=== PATIENT | female | born 1990 | race American Indian/Alaskan Native ===

== ENCOUNTER 2017-08-13 12:55 | Outpatient (CLI) | payer MEDICAID ==
--- NOTE | 2017-08-13 16:58 | Ultrasound Report ---
FINAL REPORT PROCEDURE: Transabdominal obstetrical ultrasound. TECHNIQUE: Real-time transabdominal sonography of the uterus, placenta, amniotic fluid, adnexa, and fetus was performed with image documentation. Measurements were obtained to determine age/size. M-mode Doppler was used to document heartbeat. CPT 35725 HISTORY: Missed . COMPARISON: No prior studies are available for comparison. FINDINGS: The uterus measures 9.2 centimeters x 6.5 centimeters x 8.9 centimeters. The myometrium appears normal. There is a fluid collection in the uterus consistent with an intrauterine gestational sac. A pole is not definitely visible on these transabdominal images. Neither ovary is definitely visualized. There is no fluid in the cul-de-sac. IMPRESSION: Probable intrauterine gestational sac. pole not definitely visualized.
--- NOTE | 2017-08-13 17:01 | Ultrasound Report ---
FINAL REPORT PROCEDURE: Transvaginal obstetrical ultrasound. TECHNIQUE: Real-time transvaginal sonography of the uterus, placenta, amniotic fluid, adnexa, and fetus was performed with image documentation. Measurements were obtained to determine age/size. M-mode Doppler was used to document heartbeat. CPT 20714 HISTORY: Missed . COMPARISON: No prior studies are available for comparison. FINDINGS: The uterine myometrium appears normal. There is an intrauterine gestational sac. There is a pole present with a crown-rump length measure of 1.0 centimeters. This indicates a menstrual age of 7 weeks 1 day. There is no detectable heart rate. Both ovaries appear normal in size and contain small follicles. There is no fluid in the cul-de-sac. IMPRESSION: Intrauterine demise.
== END 2017-08-13 12:56 | disposition home or self-care (01) ==
LOC: US 12:55
PROVIDERS: ATTEND Obstetrics & Gynecology
DX: O02.1 Missed abortion (principal); Z3A.01 Less than 8 weeks gestation of pregnancy
CPT/HCPCS: 76801; 76817

== ENCOUNTER 2017-08-22 08:10 | Emergency (ER) | payer MEDICAID | END 2017-08-22 09:55 | disposition left against medical advice (07) | LOC: ED 08:10 | DX: Z53.21 Procedure and treatment not carried out due to patient leaving prior to being seen by health care provider (principal) ==

== ENCOUNTER 2017-08-22 11:19 | Emergency (ER) | payer MEDICAID ==
[2017-08-22] MEDS ORDERED: NACL 0.9% 1000 ML 1,000 ML IV ONE ×2 (12:16→14:15)
--- NOTE | 2017-08-22 12:24 | Emergency Department Report ---
ED Female HPI - General Chief complaint: Urogenital-Female Stated complaint: MISCARRAGE/SYNCOPE Time Seen by Provider: 08/22/17 12:14 Source: patient, EMS Mode of arrival: Stretcher Limitations: No Limitations - History of Present Illness Initial comments: 26-year-old female presents to the hospital with vaginal bleeding status post miscarriage. This is patient's second she has one living child. She had ultrasound on record here 08/13/2017 showed a 7 week 1 day IUP with no heart. Diagnosis intrauterine demise. The last 3 days she has had intermittent vaginal bleeding that increased this morning with clots. Patient initially presented to the ED this am and within one hour she states she soaks through 7 pads. She left prior to being seen by ed physician then went to [facility] where she soaked through another 4 pads. She states they removed a sac in the office and discharged her. While walking to her vehicle patient became lightheaded and passed out. She complains only of intermittent mild suprapubic cramping abdominal pain and continued vaginal bleeding. She denies headache, chest pain, or shortness of breath. - Related Data Previous Rx's Medication Instructions Recorded Last Taken Type HYDROcodone/APAP 5-325 [[place] 1 each PO Q6HR PRN #12 tablet 08/22/17 Unknown Rx 5/325] Ibuprofen [Motrin] 600 mg PO Q8H PRN #30 tablet 08/22/17 Unknown Rx Methylergonovine Maleate 0.2 mg PO Q4HR #6 tab 08/22/17 Unknown Rx [Methergine] Allergies Allergy/AdvReac Type Severity Reaction Status Date / Time No Known Allergies Allergy Unverified 08/13/17 12:56 ED Review of Systems ROS: Stated complaint: MISCARRAGE/SYNCOPE Other details as noted in HPI Comment: All other systems reviewed and negative Other: Constitutional: No fevers chills Eyes: No eye pain visual changes or discharge ENT: No ear pain or throat pain Neck: Denies pain Respiratory: Denies cough wheezing shortness of breath Cardiovascular: Denies chest pain, palpitations= GI: Denies nausea, vomiting, diarrhea : Denies dysuria Musculoskeletal: Denies back pain Skin: Denies rash, lesions, erythema Neurologic: Denies headache, numbness, weakness Psychiatric: Denies suicidal ideation, hallucinations = ED Past Medical Hx - Past Medical History Previous Medical History?: No - Social History Smoking Status: Former Smoker - Medications Home Medications: Home Medications Medication Instructions Recorded Confirmed Last Taken Type HYDROcodone/APAP 5-325 [[place] 1 each PO Q6HR PRN #12 tablet 08/22/17 Unknown Rx 5/325] Ibuprofen [Motrin] 600 mg PO Q8H PRN #30 tablet 08/22/17 Unknown Rx Methylergonovine Maleate 0.2 mg PO Q4HR #6 tab 08/22/17 Unknown Rx [Methergine] ED Physical Exam - General Limitations: No Limitations - Other Other exam information: General: No limitations, patient is alert in no acute distress Head exam: Atraumatic, normocephalic Eyes exam: Normal appearance ENT: Moist mucous membrane, normal oropharynx Neck exam: Normal inspection, full range of motion, no meningismus nontender Respiratory exam: Clear to auscultation bilateral, no wheezes, rales, crackles Cardiovascular: Normal rate and rhythm, normal heart sounds Abdomen: Soft, nondistended, mild suprapubic tenderness, with normal bowel sounds, no rebound, or guarding Extremity: Full range of motion normal inspection no deformity Back: Normal Inspection, full range of motion, no tenderness Neurologic: Alert, oriented x3, cranial nerves intact, no motor or sensory deficit Psychiatric: normal affect, normal mood Skin: Warm, dry, intact ED Course Vital Signs 08/22/17 08/22/17 12:10 17:55 Temperature 98.0 F 98.6 F Pulse Rate 113 H 85 Respiratory 15 15 Rate Blood Pressure 103/67 103/60 [Left] O2 Sat by Pulse 100 100 Oximetry - Reevaluation(s) Reevaluation #1: 08/22/17 12:24 1 L normal saline ordered - Consultations Consultation #1: 08/22/17 16:14 Case discussed with Autumn Villeda on-call for [facility]. She is familiar with the patient from the office. They plan to discharge home with methergin but she had syncopal episode prior to receiving the medication. We discussed patient's vital signs, labs, and ultrasound result. She recommends Methergine 0.2 mg IM now followed by by mouth Methergine 0.2 mg every 4 hours 6 doses to go home with. Recommend one shot of Rocephin 500 mg prior to discharge. 08/22/17 17:50 ED Medical Decision Making - Lab Data Result diagrams: 08/22/17 12:38 08/22/17 12:38 Lab Results 08/22/17 08/22/17 08/22/17 Range/Units 12:38 12:38 12:38 WBC 19.8 H (4.5-11.0) K/mm3 RBC 3.21 L (3.65-5.03) M/mm3 Hgb 9.1 L (10.1-14.3) gm/dl Hct 27.7 L (30.3-42.9) % MCV 86 (79-97) fl MCH 28 (28-32) pg MCHC 33 (30-34) % RDW 14.9 (13.2-15.2) % Plt Count 304 (140-440) K/mm3 Add Manual Diff Complete Total Counted 100 Seg Neuts % (Manual) 89.0 H (40.0-70.0) % Band Neutrophils % 4.0 % Lymphocytes % (Manual) 6.0 L (13.4-35.0) % Reactive Lymphs % (Man) 0 % Monocytes % (Manual) 1.0 (0.0-7.3) % Eosinophils % (Manual) 0 (0.0-4.3) % Basophils % (Manual) 0 (0.0-1.8) % Metamyelocytes % 0 % Myelocytes % 0 % Promyelocytes % 0 % Blast Cells % 0 % Nucleated RBC % Not Reportable Seg Neutrophils # Man 17.6 H (1.8-7.7) K/mm3 Band Neutrophils # 0.8 K/mm3 Lymphocytes # (Manual) 1.2 (1.2-5.4) K/mm3 Abs React Lymphs (Man) 0.0 K/mm3 Monocytes # (Manual) 0.2 (0.0-0.8) K/mm3 Eosinophils # (Manual) 0.0 (0.0-0.4) K/mm3 Basophils # (Manual) 0.0 (0.0-0.1) K/mm3 Metamyelocytes # 0.0 K/mm3 Myelocytes # 0.0 K/mm3 Promyelocytes # 0.0 K/mm3 Blast Cells # 0.0 K/mm3 WBC Morphology Not Reportable Hypersegmented Neuts Not Reportable Hyposegmented Neuts Not Reportable Hypogranular Neuts Not Reportable Smudge Cells Not Reportable Toxic Granulation Not Reportable Toxic Vacuolation Not Reportable Dohle Bodies Not Reportable Pelger-Huet Anomaly Not Reportable Alex Rods Not Reportable Platelet Estimate Not Reportable Clumped Platelets Not Reportable Plt Clumps, EDTA Not Reportable Large Platelets Not Reportable Giant Platelets Not Reportable Platelet Satelliting Not Reportable Plt Morphology Comment Not Reportable RBC Morphology Not Reportable Dimorphic RBCs Not Reportable Polychromasia Not Reportable Hypochromasia Not Reportable Poikilocytosis Not Reportable Anisocytosis 1+ Microcytosis Not Reportable Macrocytosis Not Reportable Spherocytes Not Reportable Pappenheimer Bodies Not Reportable Sickle Cells Not Reportable Target Cells Not Reportable Tear Drop Cells Not Reportable Ovalocytes Not Reportable Helmet Cells Not Reportable Loco-[place] Bodies Not Reportable [place] Rings Not Reportable [place] Cells Not Reportable Bite Cells Not Reportable Crenated Cell Not Reportable Elliptocytes Not Reportable Acanthocytes (Spur) Not Reportable Rouleaux Not Reportable Hemoglobin C Crystals Not Reportable Schistocytes Not Reportable Malaria parasites Not Reportable Yimi Bodies Not Reportable Hem Pathologist Commnt No Sodium 138 (137-145) mmol/L Potassium 3.9 (3.6-5.0) mmol/L Chloride 99.6 (98-107) mmol/L Carbon Dioxide 21 L (22-30) mmol/L Anion Gap 21 mmol/L BUN 10 (7-17) mg/dL Creatinine 0.4 L (0.7-1.2) mg/dL Estimated GFR > 60 ml/min BUN/Creatinine Ratio 25 % Glucose 130 H (65-100) mg/dL Calcium 8.6 (8.4-10.2) mg/dL HCG, Quant (0-4) mIU/mL Blood Type AB POSITIVE Antibody Screen Negative 08/22/17 Range/Units Unknown WBC (4.5-11.0) K/mm3 RBC (3.65-5.03) M/mm3 Hgb (10.1-14.3) gm/dl Hct (30.3-42.9) % MCV (79-97) fl MCH (28-32) pg MCHC (30-34) % RDW (13.2-15.2) % Plt Count (140-440) K/mm3 Add Manual Diff Total Counted Seg Neuts % (Manual) (40.0-70.0) % Band Neutrophils % % Lymphocytes % (Manual) (13.4-35.0) % Reactive Lymphs % (Man) % Monocytes % (Manual) (0.0-7.3) % Eosinophils % (Manual) (0.0-4.3) % Basophils % (Manual) (0.0-1.8) % Metamyelocytes % % Myelocytes % % Promyelocytes % % Blast Cells % % Nucleated RBC % Seg Neutrophils # Man (1.8-7.7) K/mm3 Band Neutrophils # K/mm3 Lymphocytes # (Manual) (1.2-5.4) K/mm3 Abs React Lymphs (Man) K/mm3 Monocytes # (Manual) (0.0-0.8) K/mm3 Eosinophils # (Manual) (0.0-0.4) K/mm3 Basophils # (Manual) (0.0-0.1) K/mm3 Metamyelocytes # K/mm3 Myelocytes # K/mm3 Promyelocytes # K/mm3 Blast Cells # K/mm3 WBC Morphology Hypersegmented Neuts Hyposegmented Neuts Hypogranular Neuts Smudge Cells Toxic Granulation Toxic Vacuolation Dohle Bodies Pelger-Huet Anomaly Alex Rods Platelet Estimate Clumped Platelets Plt Clumps, EDTA Large Platelets Giant Platelets Platelet Satelliting Plt Morphology Comment RBC Morphology Dimorphic RBCs Polychromasia Hypochromasia Poikilocytosis Anisocytosis Microcytosis Macrocytosis Spherocytes Pappenheimer Bodies Sickle Cells Target Cells Tear Drop Cells Ovalocytes Helmet Cells Loco-[place] Bodies [place] Rings [place] Cells Bite Cells Crenated Cell Elliptocytes Acanthocytes (Spur) Rouleaux Hemoglobin C Crystals Schistocytes Malaria parasites Yimi Bodies Hem Pathologist Commnt Sodium (137-145) mmol/L Potassium (3.6-5.0) mmol/L Chloride (98-107) mmol/L Carbon Dioxide (22-30) mmol/L Anion Gap mmol/L BUN (7-17) mg/dL Creatinine (0.7-1.2) mg/dL Estimated GFR ml/min BUN/Creatinine Ratio % Glucose (65-100) mg/dL Calcium (8.4-10.2) mg/dL HCG, Quant 3280 H (0-4) mIU/mL Blood Type Antibody Screen - EKG Data -: EKG Interpreted by Me EKG shows normal: sinus rhythm, axis (22), QRS complexes (102), ST-T waves (no stemi/t inv) Rate: normal (89) - EKG Data When compared to previous EKG there are: previous EKG unavailable - Radiology Data Radiology results: report reviewed pelvic/transvag us: Heterogeneous thick endometerium. no gestation sac, no mass at adenexa - Medical Decision Making Case discussed with [facility]. Patient feels better, bleeding has decreased, and Methergine initiated. She does have some anemia with hemoglobin greater than 8. Will be discharged home with treatment - Differential Diagnosis anemia, volume depletion, vasovagal, pe, arrhythmia Critical Care Time: No Critical care attestation.: If time is entered above; I have spent that time in minutes in the direct care of this critically ill patient, excluding procedure time. ED Disposition Clinical Impression: Miscarriage, Episode of heavy vaginal bleeding, Syncope Disposition: TO HOME OR SELFCARE Is pt being admited?: No Does the pt Need Aspirin: No Condition: Stable Instructions: Spontaneous Miscarriage (ED), Syncope (ED) Additional Instructions: Take the medication as directed. Follow-up with your [facility] doctor. Return if symptoms worsen Prescriptions: HYDROcodone/APAP 5-325 [[place] 5/325] 1 each PO Q6HR PRN #12 tablet PRN Reason: Pain Ibuprofen [Motrin] 600 mg PO Q8H PRN #30 tablet PRN Reason: Pain Methylergonovine Maleate [Methergine] 0.2 mg PO Q4HR #6 tab Referrals: [facility] [Provider Group] - 2-3 Days Forms: Work/School Release Form(ED) Time of Disposition: 17:50
[2017-08-22 12:57] LABS: Hematocrit 27.7 % (30.3-42.9); Hemoglobin 9.1 gm/dl (10.1-14.3); Mean Corpuscular HGB Conc 33 % (30-34); Mean Corpuscular Hemoglobin 28 pg (28-32); Mean Corpuscular Volume 86 fl (79-97); Platelet Count 304 K/mm3 (140-440); Red Blood Count 3.21 M/mm3 (3.65-5.03); Red Cell Distribution Width 14.9 % (13.2-15.2)
[2017-08-22 13:13] LABS: BUN/Creatinine Ratio 25; Blood Urea Nitrogen 10 mg/dL (7-17); Calcium 8.6 mg/dL (8.4-10.2); Hemolysis Index 24
[2017-08-22 13:37] LABS: Band Neutrophils # (Manual) 0.8 K/mm3; Eosinophils % (Manual) 0 % (0.0-4.3); Total Cells Counted 100
[2017-08-22 13:38] LABS: Anisocytosis 1+; Basophils % (Manual) 0 % (0.0-1.8)
[2017-08-22] MEDS ORDERED: TORADOL IV ONE ×2 (14:29→14:34)
[2017-08-22] MEDS ORDERED: TORADOL ONE (14:30)
--- NOTE | 2017-08-22 15:50 | Ultrasound Report ---
Pelvic and transvaginal sonography: History: Recent miscarriage: Vaginal bleeding Findings: Uterus measures 12.1 x 5.6 x 7.9 cm. Endometrial thickness 20.3 mm. Endometrium is heterogeneous. No distinct mass is identified. No gestational sac is seen. Right ovary 2.7 x 1.9 x 2.3 cm. No mass. Left ovary 3.4 x 2.2 x 2.2 cm. No mass. Impression: Heterogeneous thick endometrium. No gestational sac. No mass at adnexa.
[2017-08-22] MEDS ORDERED: METHERGINE IM ONE (16:12)
[2017-08-22] MEDS ORDERED: ROCEPHIN 500 MG in NACL 0.9% 50 ML IV ONE (16:13)
[2017-08-22] MEDS ORDERED: cefTRIAXone 0.5 GM in NACL 0.9% 20 ML IV ONE (17:30)
[2017-08-22 17:56] VITALS: BP 103/60
== END 2017-08-22 18:31 | disposition home or self-care (01) ==
LOC: ED 11:19
DX: O03.9 Complete or unspecified spontaneous abortion without complication (principal); O20.9 Hemorrhage in early pregnancy, unspecified; R55 Syncope and collapse; Z3A.01 Less than 8 weeks gestation of pregnancy; Z87.891 Personal history of nicotine dependence
CPT/HCPCS: 36415; 76801; 76817; 80048; 84702; 85007; 85025; 86850; 86900; 86901; 93005; 93010; 96361; 96372; 96374; 96375; 99284; J0696; J1885; J2210; J7030

== ENCOUNTER 2018-01-20 21:08 | Emergency (ER) | payer MEDICAID | END 2018-01-20 22:22 | disposition left against medical advice (07) | LOC: ED 21:08 | DX: N93.8 Other specified abnormal uterine and vaginal bleeding (principal); Z53.21 Procedure and treatment not carried out due to patient leaving prior to being seen by health care provider ==

== ENCOUNTER 2018-01-24 21:32 | Emergency (ER) | payer MEDICAID ==
[2018-01-24 23:07] LABS: Hemoglobin 9.6 gm/dl (10.1-14.3)
[2018-01-24 23:14] LABS: Hematocrit 30.7 % (30.3-42.9); Mean Corpuscular Volume 62 fl (79-97); Red Blood Count 4.98 M/mm3 (3.65-5.03)
[2018-01-24 23:15] LABS: Mean Corpuscular HGB Conc 32 % (30-34); Mean Corpuscular Hemoglobin 20 pg (28-32); Platelet Count 509 K/mm3 (140-440); Red Cell Distribution Width 29.8 % (13.2-15.2)
[2018-01-24 23:18] LABS: Alanine Aminotransferase 9 units/L (7-56); Albumin 4.5 g/dL (3.9-5); BUN/Creatinine Ratio 17; Blood Urea Nitrogen 10 mg/dL (7-17); Calcium 9.3 mg/dL (8.4-10.2); Hemolysis Index 4
--- NOTE | 2018-01-24 23:38 | Emergency Department Report ---
HPI - General Chief Complaint: Abdominal Pain Time Seen by Provider: 01/24/18 22:53 - HPI HPI: Room 10 The patient is a 27-year-old female presenting with a chief complaint of vaginal spotting and pelvic cramping. The patient states she had a miscarriage in August. The patient states she has not had a cycle since November and subsequently took a test 5 days ago which came back positive. The patient states this morning she noticed some vaginal spotting and this prompted her to come to the ED for evaluation. The patient states she has not seen an OB /HOSPITAL NURSE for this second suspected . Patient states she has some lower abdominal cramping this morning but has since resolved. Location: Pelvis, see above Duration: [See above] Quality: Cramping Severity: Currently 0/10 Modifying factors: [see above] Context: [see above] Mode of transportation: Unknown ED Past Medical Hx - Past Medical History Previous Medical History?: No - Surgical History Past Surgical History?: No - Family History Family history: no significant - Social History Smoking Status: Former Smoker (none 1 month) Substance Use Type: None (denies illicit drug use) - Medications Home Medications: Home Medications Medication Instructions Recorded Confirmed Last Taken Type HYDROcodone/APAP 5-325 [[place] 1 each PO Q6HR PRN #12 tablet 08/22/17 Unknown Rx 5/325] Ibuprofen [Motrin] 600 mg PO Q8H PRN #30 tablet 08/22/17 Unknown Rx Methylergonovine Maleate 0.2 mg PO Q4HR #6 tab 08/22/17 Unknown Rx [Methergine] ED Review of Systems ROS: Stated complaint: ABD PAIN / VAG BLEEDING Other details as noted in HPI Constitutional: no symptoms reported Eyes: denies: eye pain ENT: denies: throat pain Cardiovascular: denies: chest pain Gastrointestinal: abdominal pain Genitourinary: abnormal menses. denies: dysuria Musculoskeletal: denies: back pain Neurological: denies: headache Physical Exam - Physical Exam Vital Signs: Vital Signs 01/24/18 21:56 Temperature 98.8 F Pulse Rate 83 Respiratory 14 Rate Blood Pressure 99/56 O2 Sat by Pulse 100 Oximetry Physical Exam: GENERAL: The patient is well-developed well-nourished female sitting on stretcher not appearing to be in acute distress. [] HEENT: Normocephalic. Atraumatic. Extraocular motions are intact. Patient has moist mucous membranes. NECK: Supple. Trachea midline CHEST/LUNGS: Clear to auscultation. There is no respiratory distress noted. HEART/CARDIOVASCULAR: Regular. There is no tachycardia. There is no gallop rub or murmur. ABDOMEN: Abdomen is soft, nontender. Patient has normal bowel sounds. There is no abdominal distention. SKIN: There is no rash. There is no edema. There is no diaphoresis. NEURO: The patient is awake, alert, and oriented. The patient is cooperative. The patient has normal speech MUSCULOSKELETAL: There is no evidence of acute injury. ED Course Vital Signs 01/24/18 21:56 Temperature 98.8 F Pulse Rate 83 Respiratory 14 Rate Blood Pressure 99/56 O2 Sat by Pulse 100 Oximetry ED Medical Decision Making - Lab Data Result diagrams: 01/24/18 22:42 01/24/18 22:42 Laboratory Tests 01/24/18 01/24/18 01/24/18 22:42 22:42 22:42 WBC 9.1 RBC 4.98 Hgb 9.6 L Hct 30.7 MCV 62 L MCH 20 L MCHC 32 RDW 29.8 H Plt Count 509 H Sodium 136 L Potassium 4.0 Chloride 97.1 L Carbon Dioxide 28 Anion Gap 15 BUN 10 Creatinine 0.6 L Estimated GFR > 60 BUN/Creatinine Ratio 17 Glucose 109 H Calcium 9.3 Total Bilirubin < 0.20 AST 14 ALT 9 Alkaline Phosphatase 87 Total Protein 7.1 Albumin 4.5 Albumin/Globulin Ratio 1.7 HCG, Quant 21252 H - Radiology Data Radiology results: report reviewed (pelvic ultrasound), image reviewed (pelvic ultrasound) Pelvic ultrasound to see his regular radiologist)-single live IUP. Estimated gestational age 6 weeks 0 days. Estimated delivery date 09/20/2018. 2.0 cm hypoechoic avascular structure in the right ovary which may reflect corpus luteum. No adnexal masses. - Medical Decision Making Patient states she knows which [facility] she wishes to see and does not need a referral. - Differential Diagnosis threatened , missed , menses Critical care attestation.: If time is entered above; I have spent that time in minutes in the direct care of this critically ill patient, excluding procedure time. ED Disposition Clinical Impression: Threatened Disposition: DC-01 TO HOME OR SELFCARE Is pt being admited?: No Does the pt Need Aspirin: No Condition: Stable Instructions: Abdominal Pain (ED), Threatened Miscarriage (ED) Additional Instructions: Return to the emergency department immediately should you develop worsening symptoms, fever, inability to tolerate food or liquid or any other concerns. Referrals: PRIMARY CARE,MD [Primary Care Provider] - 3-5 Days your, [facility] [Other] - [facility]ALI Time of Disposition: 01:25
--- NOTE | 2018-01-25 01:32 | Ultrasound Report ---
FINAL REPORT EXAM: US OB < = 14 WEEKS FETUS HISTORY: vaginal spotting COMPARISON: None of this . TECHNIQUE: Several real-time grayscale and color Doppler images were obtained. Transabdominal and transvaginal exam. FINDINGS: Uterus measures 8.5 x 5.5 x 6.8 centimeters. Uterus is retroverted. There is a single live IUP. Estimated gestational age 6 weeks 0 days. Estimated delivery date September 20, 2018. heart rate 91 beats per minute. The right ovary measures 2.9 x 2.0 x 2.6 centimeters. The left ovary measures 2.1 x 1.6 x 1.8 centimeters. Within the right ovary there is a 2.0 x 1.4 x 1.8 centimeter hypoechoic avascular structure which may reflect corpus luteum. Gross vascular flow to the right ovary demonstrated. No adnexal masses. Trace fluid in the pelvis. IMPRESSION: Single live IUP. Estimated gestational age 6 weeks 0 days. Estimated delivery date September 20, 2018. 2.0 centimeter hypoechoic avascular structure in the right ovary which may reflect corpus luteum. No adnexal masses.
[2018-01-25 01:51] LABS: Bilirubin,Urine NEG (Negative); Blood,Urine NEG (Negative); Color,Urine Yellow (Yellow); Protein,Urine <15 mg/dL mg/dL (Negative); Urobilinogen,Urine < 2.0 mg/dL (<2.0)
[2018-01-25 01:54] VITALS: BP 103/51
[2018-01-25 02:35] LABS: Anisocytosis 1+; Band Neutrophils # (Manual) 0.1 K/mm3; Total Cells Counted 100
[2018-01-25 02:36] LABS: Hypochromasia 1+; Platelet Estimate Consistent w Auto; Poikilocytosis 1+
== END 2018-01-25 01:53 | disposition home or self-care (01) ==
LOC: ED 21:32
DX: O20.0 Threatened abortion (principal); Z3A.01 Less than 8 weeks gestation of pregnancy; Z87.891 Personal history of nicotine dependence
CPT/HCPCS: 36415; 76801; 76817; 80053; 81001; 84702; 85007; 85025; 99284

== ENCOUNTER 2018-08-22 15:37 | Observation (INO) | payer MEDICAID ==
[2018-08-22] MEDS ORDERED: CELESTONE SOLUSPAN IM ONE (18:00)
[2018-08-22] MEDS ORDERED: LACTATED RINGERS 1,000 ML IV ONE (18:00)
[2018-08-22 18:33] LABS: Bacteria,Urine 1+ /HPF (Negative); Bilirubin,Urine NEG (Negative); Blood,Urine SM (Negative); Color,Urine Amber (Yellow); Mucus,Urine 3+ /HPF
[2018-08-22 18:40] LABS: Amphetamine Screen,Urine PRESUMPTIVE NEGATIVE; Benzodiazepines Screen,Urine PRESUMPTIVE NEGATIVE; Cocaine Screen,Urine PRESUMPTIVE NEGATIVE; Methadone Screen,Urine PRESUMPTIVE NEGATIVE; Opiate Screen,Urine PRESUMPTIVE NEGATIVE
[2018-08-22 19:00] LABS: Cannabinoid Screen,Urine PRESUMPTIVE POSITIVE
[2018-08-22] MEDS ORDERED: BRETHINE SUB-Q ONE (19:00)
[2018-08-22] MEDS ORDERED: TYLENOL PO PRN (19:21)
[2018-08-22] MEDS ORDERED: COLACE PO PRN (19:21)
--- NOTE | 2018-08-22 19:36 | History and Physical Report ---
History of Present Illness Date of examination: 08/22/18 Date of admission: 08/22/2018 Chief complaint: Contractions History of present illness: 27 year old at 36 weeks gestation presents for complaining of contractions for the past 2 weeks. Patient denies leaking of fluid, vaginal bleeding, falls or abdominal trauma. She reports active movement. She has been receiving care at [facility]. LMP 01/26/18 and EDC is 09/19/2018. A 10 week 1 day US confirmed the EDC. significant for Vitamin D deficiency, anemia, and genital herpes on Valtrex suppression. labs are as follows: AB+, Abs-, Rubella Immune, RPR Non-reactive, Hep B Surface Antigen Negative, HIV negative, Glucose screen 110, Quad Screen Negative, GBS unknown. 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 denies: smoking, alcohol abuse, prescription drug abuse, IV drug use - Obstetrical History Expected Date of Delivery: 09/19/18 Actual Gestation: 36 Week(s) 0 Day(s) : 3 Para: 1 Hx # Term Pregnancies: 1 Number of Pregnancies: 0 Spontaneous Abortions: 1 Number of Living Children: 1 Medications and Allergies Allergies Allergy/AdvReac Type Severity Reaction Status Date / Time No Known Allergies Allergy Unverified 08/13/17 12:56 Home Medications Medication Instructions Recorded Confirmed Last Taken Type HYDROcodone/APAP 5-325 [[place] 1 each PO Q6HR PRN #12 tablet 08/22/17 Unknown Rx 5/325] Ibuprofen [Motrin] 600 mg PO Q8H PRN #30 tablet 08/22/17 Unknown Rx Methylergonovine Maleate 0.2 mg PO Q4HR #6 tab 08/22/17 Unknown Rx [Methergine] Acyclovir [Acyclovir Ointment] 1 applicatio TP 5XD #1 tube 06/12/18 Unknown Rx Active Meds: Active Medications Acetaminophen (Tylenol) 650 mg PO Q4H PRN PRN Reason: Pain MILD(1-3)/Fever >100.5/HARRISON Docusate Sodium (Colace) 100 mg PO Q12H PRN PRN Reason: Constipation Ampicillin Sodium (Polycillin/Ns 2 Gm/100 Ml) 2 gm in 100 mls @ 100 mls/hr IV ONCE ONE; Protocol Stop: 08/22/18 20:20 Lactated Ringer's (Lactated Ringers) 1,000 mls @ 125 mls/hr IV DIRECT ALEYDA Multivitamins/Iron/Calcium ( Vitamin) 1 each PO QDAY [facility] Valacyclovir HCl (Valtrex) 500 mg PO BID [facility] Review of Systems All systems: negative (contractions) - Vital Signs Vital signs: Vital Signs Pulse BP 108 H 106/65 08/22/18 17:05 08/22/18 17:05 Temp Pulse Resp BP Pulse Ox 97.5 F L 98 H 16 111/60 08/22/18 18:28 08/22/18 18:30 08/22/18 18:28 08/22/18 18:30 - Physical Exam Cardiovascular: Regular rate, Normal S1, Normal S2 Lungs: Positive: Clear to auscultation, Normal air movement Abdomen: Positive: soft. Negative: tenderness Genitourinary (Female): Positive: normal external genitalia, normal perenium. Negative: perineal/vulvar lesions (no lesions seen on careful exam with bright light upon admission) Vagina: Positive: normal moisture Uterus: Positive: enlarged (S=D) Extremities: Positive: normal. Negative: edema - Obstetrical FHR: category 1 Uterine Contraction Monitor Mode: External Cervical Dilatation: 3.5 Cervical Effacement Percentage: 60 station: -2 Uterine Contraction Pattern: Irregular Results Abnormal lab results 08/22/18 Range/Units Unknown Urine WBC (Auto) 31.0 H (0.0-6.0) /HPF All other labs normal. Assessment and Plan A: at 36 weeks gestation Threatened PTL GBS unknown HSV positive P: Admit for 23 hour observation Valtrex Suppression of HSV IV hydration Betamethasone GBS prophylaxis MULUGETA Brooks/ Katherin Sainz CNM
[2018-08-22] MEDS ORDERED: LACTATED RINGERS 1,000 ML IV SCH (20:00)
[2018-08-22] MEDS ORDERED: AMPICILLIN/NS 2 GM/100 ML 2 GM/100 ML BAG IV ONE (20:00)
[2018-08-22 20:44] LABS: Basophils # (Auto) 0.1 K/mm3 (0.0-0.1); Basophils % (Auto) 0.6 % (0.0-1.8); Eosinophils % (Auto) 0.1 % (0.0-4.3); Hematocrit 31.2 % (30.3-42.9); Hemoglobin 10.2 gm/dl (10.1-14.3); Lymphocytes % (Auto) 7.1 % (13.4-35.0); Mean Corpuscular HGB Conc 33 % (30-34); Mean Corpuscular Volume 78 fl (79-97); Monocytes # (Auto) 0.4 K/mm3 (0.0-0.8); Monocytes % (Auto) 2.7 % (0.0-7.3); Platelet Count 314 K/mm3 (140-440); Red Blood Count 4.01 M/mm3 (3.65-5.03); Red Cell Distribution Width 16.9 % (13.2-15.2)
[2018-08-22] MEDS: VALTREX PO SCH (22:31)
[2018-08-23] MEDS ORDERED: AMPICILLIN/NS 1 GM/50 ML 1 GM/50 ML BAG IV SCH
[2018-08-23] MEDS ORDERED: PRENATAL VITAMIN PO SCH (10:00)
[2018-08-23] MEDS ORDERED: ROCEPHIN/NS 1 GM/50 ML 1 GM/50 ML BAG IV SCH (10:00)
[2018-08-23] MEDS: VALTREX PO SCH (11:59)
--- NOTE | 2018-08-23 12:47 | Progress Note ---
Assessment and Plan A: at 36 weeks 1 day gestation Threatened PTL P: Plan repeat betamethasone at 6pm and cervical recheck. If no cervical change anticipate discharge. MULUGETA Brooks/ Katherin Sainz CNM Subjective - Subjective Date of service: 08/23/18 Principal diagnosis: 36 weeks 1day gestation and threatened PTL Interval history: Patient is doing well. Patient reports active movement, denies vaginal bleeding, regular contractions or leaking of fluid. Receiving IV antibiotics for UTI. Patient reports: movement normal, no new complaints Objective - Vital Signs Vital Signs: Vital Signs - 12hr 08/23/18 08/23/18 09:01 09:05 Temperature 97 F L Pulse Rate 88 88 Respiratory 14 Rate Blood Pressure 117/60 Blood Pressure 117/60 [Right] - Exam Abdomen: Present: normal appearance FHR: category 1 Uterine Contraction Monitor Mode: External Uterine Contraction Pattern: Absent - Labs Labs: Abnormal Labs 08/22/18 08/22/18 20:19 Unknown WBC 13.4 H MCV 78 L MCH 25 L RDW 16.9 H Lymph % (Auto) 7.1 L Lymph # 1.0 L Seg Neutrophils % 89.5 H Seg Neutrophils # 12.0 H Urine WBC (Auto) 31.0 H Laboratory Results - last 24 hr 08/22/18 08/22/18 08/22/18 20:19 Unknown Unknown WBC 13.4 H RBC 4.01 Hgb 10.2 Hct 31.2 MCV 78 L MCH 25 L MCHC 33 RDW 16.9 H Plt Count 314 Lymph % (Auto) 7.1 L [place] % (Auto) 2.7 Eos % (Auto) 0.1 Baso % (Auto) 0.6 Lymph # 1.0 L [place] # 0.4 Eos # 0.0 Baso # 0.1 Seg Neutrophils % 89.5 H Seg Neutrophils # 12.0 H Urine Color Marva Urine Turbidity Slightly-cloudy Urine pH 5.0 Ur Specific [place] 1.027 Urine Protein 30 mg/dl Urine Glucose (UA) 50 Urine Ketones Neg Urine Blood Sm Urine Nitrite Neg Urine Bilirubin Neg Urine Urobilinogen 4.0 Ur Leukocyte Esterase Lg Urine WBC (Auto) 31.0 H Urine RBC (Auto) 9.0 U Epithel Cells (Auto) 12.0 Urine Bacteria (Auto) 1+ Urine Mucus 3+ Urine Opiates Screen Presumptive negative Urine Methadone Screen Presumptive negative Ur Barbiturates Screen Presumptive negative Ur Phencyclidine Scrn Presumptive negative Ur Amphetamines Screen Presumptive negative U Benzodiazepines Scrn Presumptive negative Urine Cocaine Screen Presumptive negative U Marijuana (THC) Screen Presumptive positive Drugs of Abuse Note Disclamer
[2018-08-23 14:14] VITALS: BP 117/62
[2018-08-23] MEDS ORDERED: CELESTONE SOLUSPAN IM SCH (18:00)
[2018-08-23] MEDS ORDERED: CELESTONE SOLUSPAN IM ONE (18:00)
--- NOTE | 2018-08-23 18:36 | Discharge Summary ---
Providers - Providers Date of Admission: 08/22/18 19:29 Date of discharge: 08/23/18 Attending physician: LOGAN CSHWAB None Primary care physician: LOGAN SCHWAB Hospitalization Reason for admission: other (threatened labor) Delivery: other (undelivered at 36 weeks, 1 day gestation) Discharge diagnosis: other ( at 36 weeks, 1 day gestation; UTI; contractions resolved) Pertinent studies: Labs, US Hospital course: Stable hospital course. Condition at discharge: Good Disposition: [place]-01 TO HOME OR SELFCARE - Discharge Diagnoses (1) History of labor, current Status: Acute Plan - Provider Discharge Summary Activity: no sex for 6 weeks, no strenuous exercise Diet: routine Instructions: routine Additional instructions: Avoid intercourse until term. Follow up at [facility] this week. Daily movement counting. Take Macrobid 100 mg po BID for 1 week (Rx called to [facility]). Stop smoking marijuana. Return promptly if signs of labor, leaking of fluid, vaginal bleeding, or decreased movements or any other problems. - Follow up plan Follow up: LOGAN SCHWAB [Primary Care Provider] - 3 Days Forms: [facility] Discharge Summary
--- NOTE | 2018-08-23 19:15 | Ultrasound Report ---
FINAL REPORT EXAM: US OB BPP WO NON-STRESS HISTORY: well being TECHNIQUE: Biophysical profile obstetrical ultrasound PRIORS: Ultrasound Ob 08/23/2018, 01/24/2018. FINDINGS: Biophysical profile scoring 2 movement 2 tone 2 breathing 2 fluid 8/8 overall score Cardiac motion: 133 BPM using M-mode doppler IMPRESSION: Single intrauterine viable . Biophysical profile score is 8/8
--- NOTE | 2018-08-23 19:20 | Ultrasound Report ---
FINAL REPORT EXAM: US OB LIMITED HISTORY: DIANA TECHNIQUE: Limited obstetrical ultrasound for DIANA PRIORS: None. FINDINGS: Presentation: Cephalic Activity: Monitored Placental location: Fundal Placental grade: 1 Cardiac motion: 133 BPM using M-mode doppler Amniotic Fluid Volume: Adequate DIANA 8.6 cm, normal IMPRESSION: Single intrauterine viable with normal DIANA
== END 2018-08-23 18:50 | disposition home or self-care (01) ==
LOC: EDSTATUS 16:23 → TRG 16:34 → LD 19:29
PROVIDERS: ADMIT Obstetrics & Gynecology; ATTEND Obstetrics & Gynecology
DX: O62.9 Abnormality of forces of labor, unspecified (principal); O60.03 Preterm labor without delivery, third trimester; Z3A.36 36 weeks gestation of pregnancy
CPT/HCPCS: 36415; 59025; 76815; 76819; 80307; 81001; 85025; 87086; 96365; 96367; 96372; G0378; J0290; J0696; J0702; J7120; 96361

== ENCOUNTER 2018-08-27 01:47 | Inpatient (IN) | payer MEDICAID ==
[2018-08-27] MEDS ORDERED: LACTATED RINGERS 500 ML IV ONE (02:09)
[2018-08-27] MEDS ORDERED: STADOL IV PRN (02:32)
[2018-08-27] MEDS ORDERED: SUBLIMAZE IV PRN (02:32)
[2018-08-27] MEDS ORDERED: MINERAL OIL PO PRN (02:32)
[2018-08-27] MEDS ORDERED: BRETHINE SUB-Q PRN (02:32)
[2018-08-27] MEDS ORDERED: AMPICILLIN/NS 2 GM/100 ML 2 GM/100 ML BAG IV ONE (02:32)
[2018-08-27] MEDS ORDERED: BRETHINE IVP PRN (02:32)
[2018-08-27] MEDS ORDERED: XYLOCAINE 2% INFILTRATI ONE (02:32)
[2018-08-27] MEDS ORDERED: FLAGYL PO ONE (02:34)
[2018-08-27 02:59] LABS: Hematocrit 32.8 % (30.3-42.9); Hemoglobin 10.6 gm/dl (10.1-14.3); Mean Corpuscular HGB Conc 32 % (30-34); Mean Corpuscular Volume 79 fl (79-97); Platelet Count 315 K/mm3 (140-440); Red Blood Count 4.18 M/mm3 (3.65-5.03); Red Cell Distribution Width 17.5 % (13.2-15.2)
[2018-08-27] MEDS ORDERED: LACTATED RINGERS 1,000 ML IV SCH (03:00)
--- NOTE | 2018-08-27 03:41 | History and Physical Report ---
History of Present Illness Date of examination: 08/27/18 Date of admission: 08/27/18 02:50 Chief complaint: Labor Pains and my water broke at 0145 on 08/27/2018 History of present illness: Early entry to care, course complicated by Anemia, Vitamin D Insufficiency, Trichomonas, and HSV II, currently taking Valacyclovir and Metronidazole. 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: abnormal PAP smear, chlamydia, gonorrhea, herpes, trichomonas Family/Genetic History: diabetes, heart disease Social history: no significant social history, single - Obstetrical History Expected Date of Delivery: 09/19/18 Actual Gestation: 36 Week(s) 5 Day(s) : 5 Para: 1 Hx # Term Pregnancies: 1 Spontaneous Abortions: 1 Induced : 2 Number of Living Children: 1 #1 Infant Gender: Male year: Birthweight: 3.175 kg Method of Delivery: Vaginal Gestational age at delivery: 39 Complications: none Medications and Allergies Allergies Allergy/AdvReac Type Severity Reaction Status Date / Time No Known Allergies Allergy Unverified 08/13/17 12:56 Home Medications Medication Instructions Recorded Confirmed Last Taken Type Ferrous Sulfate [Feosol 325 MG tab] 1 tab PO BID 08/27/18 08/27/18 08/26/18 History Pnv No.95/Ferrous Fum/Folic AC 1 each PO QDAY 08/27/18 08/27/18 08/26/18 History [ Vitamin Tablet] Valacyclovir HCl [Valtrex] 1,000 mg PO QDAY 08/27/18 08/27/18 08/26/18 History metroNIDAZOLE [Flagyl TAB] 1 tab PO BID 08/27/18 08/27/18 08/26/18 History Active Meds: Active Medications Butorphanol Tartrate (Stadol) 2 mg IV Q2H PRN PRN Reason: Pain , Severe (7-10) Ephedrine Sulfate (Ephedrine Sulfate) 10 mg IV Q2M PRN PRN Reason: Hypotension Fentanyl (Sublimaze) 100 mcg IV Q2H PRN PRN Reason: Labor Pain Lactated Ringer's (Lactated Ringers) 1,000 mls @ 125 mls/hr IV DIRECT ALEYDA Oxytocin/Sodium Chloride (Pitocin/Ns 20 Unit/1000ml Drip) 20 units in 1,000 mls @ 125 mls/hr IV DIRECT ALEYDA Ampicillin Sodium (Ampicillin/Ns 1 Gm/50 Ml) 1 gm in 50 mls @ 100 mls/hr IV Q4HR ALEYDA; Protocol Mineral Oil (Mineral Oil) 30 ml PO QHS PRN PRN Reason: Constipation Terbutaline Sulfate (Brethine) 0.25 mg SUB-Q ONCE PRN PRN Reason: Hyperstimulation/Hypertonicity Terbutaline Sulfate (Brethine) 0.25 mg IVP ONCE PRN PRN Reason: Hyperstimulation/Hypertonicity Review of Systems All systems: negative - Vital Signs Vital signs: Vital Signs Pulse BP 123 H 110/74 08/27/18 01:59 08/27/18 01:59 Temp Pulse Resp BP Pulse Ox 98.8 F 100 H 20 110/74 100 08/27/18 02:03 08/27/18 02:38 08/27/18 02:03 08/27/18 01:59 08/27/18 02:38 - Physical Exam Breasts: Positive: normal Cardiovascular: Regular rate Lungs: Positive: Clear to auscultation, Normal air movement Abdomen: Positive: normal appearance, soft, normal bowel sounds Genitourinary (Female): Positive: normal external genitalia, normal perenium Vagina: Positive: normal moisture Uterus: Positive: enlarged Anus/Rectum: Positive: normal perianal skin - Obstetrical FHR: category 1 Uterine Contraction Monitor Mode: External Cervical Dilatation: 6 (leaking clear fluid) Cervical Effacement Percentage: 90 station: -2 Uterine Contraction Frequency (min): 1-2 Uterine Contraction Pattern: Regular Uterine Tone Measurement Phase: Resting Uterine Contraction Intensity: Moderate Results Result Diagrams: 08/27/18 02:45 Abnormal lab results 08/27/18 Range/Units 02:45 WBC 13.4 H (4.5-11.0) K/mm3 MCH 25 L (28-32) pg RDW 17.5 H (13.2-15.2) % All other labs normal. Assessment and Plan A: IUP @ 36 5/7 Weeks Category I Tracing PROM GBS Positive P: Admit to L&D per Routine Orders GBS Prophylaxis IV Pain Control
[2018-08-27] MEDS ORDERED: AMPICILLIN/NS 1 GM/50 ML 1 GM/50 ML BAG IV SCH (06:00)
[2018-08-27] MEDS: PITOCin/NS 20 UNIT/1000ML DRIP 20 UNITS/1,000 ML BAG IV SCH ×2 (07:10→08:39)
--- NOTE | 2018-08-27 07:30 | Procedure Note ---
OB Delivery Note - Delivery Date of Delivery: 08/27/18 (0705) Surgeon: TARYN GOMEZ Estimated blood loss: 200cc - Vaginal Delivery presentation: vertex Delivery position: OA Intrapartum events: labor-<37 weeks Delivery induction: none Delivery monitor: external FHT, external uterine Route of delivery: Delivery placenta: spontaneous Delivery cord: 3 umbilical vessels Episiotomy: none Delivery laceration: none Anesthesia: none Delivery comments: of a live 5'9 female over a intact perineum under IV pain control with Apgars of 8 and 9 at 0727 on 08/27/2017. Infant directly to maternal abd/chest, skin to skin contact. Delayed cord clamping and cutting; Cord cut by the Father of the Baby. Spontaneous delivery of placenta complete and intact with Gomez side presenting at 0710. Fundus is firm and midline located 4 below the U. Lochia is scant. GBS prophylaxis X2. Placenta to pathology. - Infant A at 1 minute: 8 at 5 minutes: 9 Infant Gender: Female (5'9)
[2018-08-27] MEDS ORDERED: SODIUM CHLORIDE FLUSH SYRINGE 10 ML IV NR (08:00)
[2018-08-27] MEDS ORDERED: BENADRYL PO PRN (08:00)
[2018-08-27] MEDS: IBUPROFEN PO SCH ×3 (08:47→22:18)
[2018-08-27] MEDS: PRENATAL VITAMIN PO SCH (10:15)
[2018-08-27 18:32] LABS: Hematocrit 32.6 % (30.3-42.9); Hemoglobin 10.5 gm/dl (10.1-14.3)
[2018-08-27] MEDS ORDERED: MILK OF MAGNESIA PO PRN (22:00)
[2018-08-28] MEDS: IBUPROFEN PO SCH ×4 (04:13→23:21)
--- NOTE | 2018-08-28 09:40 | Progress Note ---
Assessment and Plan - Patient Problems (1) Status post normal vaginal delivery Current Visit: Yes Status: Acute Plan to address problem: PPD 2 - stable Continue routine PP orders Discharge to home 08/29/18 Follow up at [facility] in 6 weeks for exam Subjective - Subjective Date of service: 08/28/18 Principal diagnosis: PPD #2, s/p Patient reports: appetite normal, voiding normally, pain well controlled, ambulating normally, no bowel movement : doing well, other (breast and bottle feeding) Objective - Vital Signs Latest vital signs: Vital Signs Temp Pulse Resp BP BP Pulse Ox 08/28/18 07:15 97.9 F 79 16 115/70 08/28/18 04:13 18 08/28/18 00:00 98.7 F 71 18 114/67 08/27/18 19:30 98.6 F 77 18 114/78 08/27/18 15:35 98.4 F 79 18 113/55 08/27/18 11:30 98.5 F 68 20 110/76 08/27/18 09:37 97.5 F L 72 18 110/67 98 Intake and Output 08/27/18 08/28/18 08/28/18 23:59 07:59 15:59 Intake Total 660 200 Output Total 500 Balance 160 200 Intake: Oral 240 Intake, Free Water 420 200 Output: Urine 500 Void 500 Other: Total, Intake Amount 240 Total, Output Amount 500 # Voids Void 1 - Exam Cardiovascular: Present: Regular rate Lungs: Present: Clear to auscultation Abdomen: Present: normal appearance, soft Vulva: both: normal Uterus: Present: normal, firm, fundal height below umbilicus Extremities: Present: normal Comments: small lochia
--- NOTE | 2018-08-28 09:43 | Discharge Summary ---
Providers - Providers Date of Admission: 08/27/18 02:50 Date of discharge: 08/29/18 Attending physician: CULLEN VAZ MD Primary care physician: CULLEN VAZ MD Hospitalization Reason for admission: active labor, labor Delivery: Episiotomy: none Laceration: none Other procedures: none complications: none Discharge diagnosis: IUP at term delivered [place] baby: female Hospital course: Uncomplicated Condition at discharge: Stable Disposition: [place]-01 TO HOME OR SELFCARE - Discharge Diagnoses (1) Status post normal vaginal delivery Status: Acute Plan - Provider Discharge Summary Activity: routine, no sex for 6 weeks, no heavy lifting 4 weeks, no strenuous exercise Diet: routine Instructions: routine Additional instructions: [] Smoking cessation referral if applicable(refer to patient education folder for contact #) [] Refer to [facility]'s [facility] Booklet Call your doctor immediately for: * Fever > 100.5 * Heavy vaginal bleeding ( >1 pad per hour) * Severe persistent headache * Shortness of breath * Reddened, hot, painful area to leg or breast * Drainage or odor from incision. * Keep incision clean and dry at all times and follow doctor's instructions regarding bathing/showering - Follow up plan Follow up: CULLEN VAZ MD [Primary Care Provider] - 6 Weeks (Follow up at [facility] in 6 weeks for exam)
[2018-08-28] MEDS: NORCO 5/325 PO PRN (11:03)
[2018-08-28] MEDS: PRENATAL VITAMIN PO SCH (11:03)
[2018-08-29] MEDS: IBUPROFEN PO SCH ×2 (05:24→14:31)
[2018-08-29] MEDS ORDERED: BOOSTRIX IM ONE (06:00)
[2018-08-29] MEDS ORDERED: LANSINOH TP ONE (08:22)
[2018-08-29] MEDS: NORCO 5/325 PO PRN ×2 (08:31→14:30)
[2018-08-29] MEDS: PRENATAL VITAMIN PO SCH (08:31)
[2018-08-29] MEDS ORDERED: LANSINOH TP PRN (13:34)
[2018-08-29 18:04] VITALS: BP 110/50
== END 2018-08-29 18:00 | disposition home or self-care (01) | DRG 774 ==
LOC: TRG 01:47 → LD 02:50 → OB 09:47
PROVIDERS: ADMIT Obstetrics & Gynecology; ATTEND Obstetrics & Gynecology
PROC: 10E0XZZ Delivery of Products of Conception, External Approach (ICD-10-PCS; principal; 2018-08-27)
PROC: 3E0234Z Introduction of Serum, Toxoid and Vaccine into Muscle, Percutaneous Approach (ICD-10-PCS; 2018-08-29)
DX: O60.14X0 Preterm labor third trimester with preterm delivery third trimester, not applicable or unspecified (principal); O98.52 Other viral diseases complicating childbirth; Z3A.36 36 weeks gestation of pregnancy; Z37.0 Single live birth; O99.02 Anemia complicating childbirth; D64.9 Anemia, unspecified; B00.9 Herpesviral infection, unspecified; O98.32 Other infections with a predominantly sexual mode of transmission complicating childbirth; A59.9 Trichomoniasis, unspecified; O99.824 Streptococcus B carrier state complicating childbirth; Z23 Encounter for immunization
CPT/HCPCS: 36415; 85014; 85018; 85027; 86592; 86850; 86900; 86901; 88305; 88307; G0378; A6250; J0290; J2590; J3010; J7120

== ENCOUNTER 2019-09-03 02:50 | Emergency (ER) | payer MEDICAID ==
[2019-09-03] MEDS ORDERED: traMADol 50 MG TAB PO ONE (07:19)
--- NOTE | 2019-09-03 07:35 | Emergency Department Report ---
- General Chief Complaint: Wound/Laceration Stated Complaint: RT EAR INJURY Time Seen by Provider: 09/03/19 07:06 Source: patient Mode of arrival: Ambulatory Limitations: No Limitations - History of Present Illness Initial Comments: 28 yo walking down stairs last night she fell and struck her right ear. 0.5 CM laceration on pinna. She denies LOC no neck pain no other injuries. Bleeding controlled. -: Sudden Location: other (right ear) Place: home Patient Tetanus UTD: Yes Context: accidental Associated Symptoms: pain - Related Data Home Medications Medication Instructions Recorded Confirmed Last Taken Ferrous Sulfate [Feosol 325 MG tab] 1 tab PO BID 08/27/18 08/27/18 08/26/18 Pnv No.95/Ferrous Fum/Folic AC 1 each PO QDAY 08/27/18 08/27/18 08/26/18 [ Vitamin Tablet] Valacyclovir HCl [Valtrex] 1,000 mg PO QDAY 08/27/18 08/27/18 08/26/18 metroNIDAZOLE [Flagyl TAB] 1 tab PO BID 08/27/18 08/27/18 08/26/18 Previous Rx's Medication Instructions Recorded Last Taken Type Ibuprofen [Motrin] 600 mg PO Q6H PRN #21 tablet 09/03/19 Unknown Rx Allergies Allergy/AdvReac Type Severity Reaction Status Date / Time No Known Allergies Allergy Unverified 08/13/17 12:56 ED Review of Systems ROS: Stated complaint: RT EAR INJURY Other details as noted in HPI Comment: All other systems reviewed and negative Constitutional: denies: chills, fever, weakness ENT: denies: ear pain, hearing loss Respiratory: denies: no symptoms reported Musculoskeletal: denies: back pain, joint swelling, myalgia Skin: other (right ear laceration ) Neurological: denies: numbness, abnormal gait ED Past Medical Hx - Past Medical History Previous Medical History?: No Hx Hypertension: No Hx Congestive Heart Failure: No Hx Diabetes: No Hx Deep Vein Thrombosis: No Hx Renal Disease: No Hx Sickle Cell Disease: No Hx Seizures: No Hx Asthma: No Hx COPD: No Hx HIV: No - Surgical History Past Surgical History?: No - Social History Smoking Status: Current Every Day Smoker Substance Use Type: Alcohol - Medications Home Medications: Home Medications Medication Instructions Recorded Confirmed Last Taken Type Ferrous Sulfate [Feosol 325 MG tab] 1 tab PO BID 08/27/18 08/27/18 08/26/18 History Pnv No.95/Ferrous Fum/Folic AC 1 each PO QDAY 08/27/18 08/27/18 08/26/18 History [ Vitamin Tablet] Valacyclovir HCl [Valtrex] 1,000 mg PO QDAY 08/27/18 08/27/18 08/26/18 History metroNIDAZOLE [Flagyl TAB] 1 tab PO BID 08/27/18 08/27/18 08/26/18 History Ibuprofen [Motrin] 600 mg PO Q6H PRN #21 tablet 09/03/19 Unknown Rx ED Physical Exam - General Limitations: No Limitations General appearance: alert, in no apparent distress - Head Head exam: Present: atraumatic - Eye Eye exam: Present: normal appearance. Absent: conjunctival injection - ENT ENT exam: Present: mucous membranes moist, TM's normal bilaterally, other (0.5 cm superficial laceration on the tragus of the right ear bleeding controlled. ) - Neck Neck exam: Present: normal inspection, full ROM. Absent: tenderness - Respiratory Respiratory exam: Present: normal lung sounds bilaterally. Absent: respiratory distress, wheezes, rales - Cardiovascular Cardiovascular Exam: Present: regular rate, normal rhythm - GI/Abdominal GI/Abdominal exam: Present: soft - Extremities Exam Extremities exam: Present: normal inspection - Neurological Exam Neurological exam: Present: alert, oriented X3 - Psychiatric Psychiatric exam: Present: normal affect - Skin Skin exam: Present: warm, dry ED Course Vital Signs 09/03/19 09/03/19 03:03 08:24 Temperature 98.2 F Pulse Rate 66 58 L Respiratory 12 20 Rate Blood Pressure 125/79 Blood Pressure 118/72 [Right] O2 Sat by Pulse 100 99 Oximetry - Laceration /Wound Repair Right Ear Wound's Depth, Shape: superficial Wound Explored: clean Irrigated w/ Saline (ccs): 30 Betadine Prep?: No Wound Repaired With: Dermabond Sterile Dressing Applied?: No ED Medical Decision Making - Medical Decision Making Right ear laceration bleeding controlled. Closed with Dermabond patient tolerated well. Critical Care Time: No Critical care attestation.: If time is entered above; I have spent that time in minutes in the direct care of this critically ill patient, excluding procedure time. ED Disposition Clinical Impression: Laceration of right ear Qualifiers: Encounter type: initial encounter Qualified Code(s): S01.311A - Laceration without foreign body of right ear, initial encounter Disposition: TO HOME OR SELFCARE Is pt being admited?: No Does the pt Need Aspirin: No Condition: Stable Instructions: Skin Adhesive Care (ED) Additional Instructions: Keep area clean and dry follow up with your doctor or return to the ER for increased pain, swelling, redness or fever. Prescriptions: Ibuprofen [Motrin] 600 mg PO Q6H PRN #21 tablet PRN Reason: Pain Referrals: PRIMARY CARE, [Primary Care Provider] - 3-5 Days Time of Disposition: 08:14
[2019-09-03] MEDS ORDERED: IBUPROFEN 800 MG TAB PO ONE (07:59)
[2019-09-03 08:30] VITALS: BP 118/72
== END 2019-09-03 08:24 | disposition home or self-care (01) ==
LOC: ED 02:50
DX: S01.311A Laceration without foreign body of right ear, initial encounter (principal); F17.200 Nicotine dependence, unspecified, uncomplicated; W18.30XA Fall on same level, unspecified, initial encounter; Y93.89 Activity, other specified; Y92.89 Other specified places as the place of occurrence of the external cause; Y99.8 Other external cause status
CPT/HCPCS: 99282

== ENCOUNTER 2021-08-11 17:20 | Emergency (ER) | payer MEDICAID ==
[2021-08-11 17:26] VITALS: BP 114/67
--- NOTE | 2021-08-11 17:31 | Emergency Department Report ---
ED HPI - General Chief complaint: Vaginal Bleeding Stated complaint: BLEEDING Time Seen by Provider: 08/11/21 17:25 Source: patient Mode of arrival: Ambulatory Limitations: No Limitations - History of Present Illness Initial comments: Patient is a 30-year-old female presents emergency room complaints of vaginal spotting that began yesterday. She denies any heavy bleeding or passing clots. She states that she has had intermittent lower abdominal cramping. She denies any fever, nausea, vomiting, diarrhea, dysuria. She reports that she is approximately 9 weeks . She states that she is receiving her OB care in [place]. She states that she is just here visiting for the holidays. Patient states that she last had ultrasound on 08/07/2021 and reports everything was normal at that time. No past medical history. No allergies to medications. /P: 2/A: 1 - Related Data Home Medications Medication Instructions Recorded Confirmed Last Taken Ferrous Sulfate [Feosol 325 MG tab] 1 tab PO BID 08/27/18 08/27/18 08/26/18 Pnv No.95/Ferrous Fum/Folic AC 1 each PO QDAY 08/27/18 08/27/18 08/26/18 [ Vitamin Tablet] Valacyclovir HCl [Valtrex] 1,000 mg PO QDAY 08/27/18 08/27/18 08/26/18 metroNIDAZOLE [Flagyl TAB] 1 tab PO BID 08/27/18 08/27/18 08/26/18 Previous Rx's Medication Instructions Recorded Last Taken Type Ibuprofen [Motrin] 600 mg PO Q6H PRN #21 tablet 09/03/19 Unknown Rx Acetaminophen [Tylenol] 650 mg PO Q8HR PRN #20 capsule 08/11/21 Unknown Rx cephALEXin [Keflex] 500 mg PO BID 7 Days #14 cap 08/11/21 Unknown Rx Allergies Allergy/AdvReac Type Severity Reaction Status Date / Time No Known Allergies Allergy Verified 08/11/21 17:22 ED Review of Systems ROS: Stated complaint: BLEEDING Other details as noted in HPI Comment: All other systems reviewed and negative ED Past Medical Hx - Past Medical History Hx Hypertension: No Hx Congestive Heart Failure: No Hx Diabetes: No Hx Deep Vein Thrombosis: No Hx Renal Disease: No Hx Sickle Cell Disease: No Hx Seizures: No Hx Asthma: No Hx COPD: No Hx HIV: No - Social History Smoking Status: Current Every Day Smoker Substance Use Type: Alcohol - Medications Home Medications: Home Medications Medication Instructions Recorded Confirmed Last Taken Type Ferrous Sulfate [Feosol 325 MG tab] 1 tab PO BID 08/27/18 08/27/18 08/26/18 History Pnv No.95/Ferrous Fum/Folic AC 1 each PO QDAY 08/27/18 08/27/18 08/26/18 History [ Vitamin Tablet] Valacyclovir HCl [Valtrex] 1,000 mg PO QDAY 08/27/18 08/27/18 08/26/18 History metroNIDAZOLE [Flagyl TAB] 1 tab PO BID 08/27/18 08/27/18 08/26/18 History Ibuprofen [Motrin] 600 mg PO Q6H PRN #21 tablet 09/03/19 Unknown Rx Acetaminophen [Tylenol] 650 mg PO Q8HR PRN #20 capsule 08/11/21 Unknown Rx cephALEXin [Keflex] 500 mg PO BID 7 Days #14 cap 08/11/21 Unknown Rx ED Physical Exam - General Limitations: No Limitations General appearance: alert, in no apparent distress - Head Head exam: Present: atraumatic, normocephalic - Eye Eye exam: Present: normal appearance - ENT ENT exam: Present: mucous membranes moist - Respiratory Respiratory exam: Present: normal lung sounds bilaterally. Absent: respiratory distress, wheezes, rales, rhonchi, stridor, chest wall tenderness, accessory muscle use, decreased breath sounds, prolonged expiratory - Cardiovascular Cardiovascular Exam: Present: regular rate, normal rhythm, normal heart sounds. Absent: systolic murmur, diastolic murmur, rubs, gallop - GI/Abdominal GI/Abdominal exam: Present: soft, normal bowel sounds. Absent: distended, tenderness, guarding, rebound, rigid - Neurological Exam Neurological exam: Present: alert, oriented X3 - Psychiatric Psychiatric exam: Present: normal affect, normal mood - Skin Skin exam: Present: warm, dry, intact ED Course Vital Signs 08/11/21 17:24 Temperature 98.5 F Pulse Rate 74 Respiratory 20 Rate Blood Pressure 114/67 [Right] O2 Sat by Pulse 100 Oximetry ED Medical Decision Making - Lab Data Result diagrams: 08/11/21 17:33 08/11/21 17:33 Lab Results 08/11/21 08/11/21 08/11/21 Range/Units 17:29 17:33 17:33 WBC 6.8 (4.5-11.0) K/mm3 RBC 4.31 (3.65-5.03) M/mm3 Hgb 12.5 (10.1-14.3) gm/dl Hct 38.2 (30.3-42.9) % MCV 88 (79-97) fl MCH 29 (28-32) pg MCHC 33 (30-34) % RDW 14.9 (13.2-15.2) % Plt Count 331 (140-440) K/mm3 Lymph % (Auto) 27.2 (13.4-35.0) % [place] % (Auto) 6.4 (0.0-7.3) % Eos % (Auto) 1.2 (0.0-4.3) % Baso % (Auto) 0.8 (0.0-1.8) % Lymph # (Auto) 1.9 (1.2-5.4) K/mm3 Mill[place] # (Auto) 0.4 (0.0-0.8) K/mm3 Eos # (Auto) 0.1 (0.0-0.4) K/mm3 Baso # (Auto) 0.1 (0.0-0.1) K/mm3 Seg Neutrophils % 64.4 (40.0-70.0) % Seg Neutrophils # 4.4 (1.8-7.7) K/mm3 Sodium 136 L (137-145) mmol/L Potassium 4.0 (3.6-5.0) mmol/L Chloride 100.7 (98-107) mmol/L Carbon Dioxide 23 (22-30) mmol/L Anion Gap 16 mmol/L BUN 10 (7-17) mg/dL Creatinine 0.5 L (0.6-1.2) mg/dL Estimated GFR > 60 ml/min BUN/Creatinine Ratio 20 % Glucose 86 (65-100) mg/dL Calcium 9.5 (8.4-10.2) mg/dL Total Bilirubin 0.20 (0.1-1.2) mg/dL AST 13 (5-40) units/L ALT 11 (7-56) units/L Alkaline Phosphatase 62 (35-129) units/L Total Protein 7.2 (6.3-8.2) g/dL Albumin 4.2 (3.9-5) g/dL Albumin/Globulin Ratio 1.4 % HCG, Quant (0-4) mIU/mL Urine Color Yellow (Yellow) Urine Turbidity Slightly-cloudy (Clear) Urine pH 6.0 (5.0-7.0) Ur Specific [place] 1.012 (1.003-1.030) Urine Protein <15 mg/dl (Negative) mg/dL Urine Glucose (UA) Neg (Negative) mg/dL Urine Ketones Neg (Negative) mg/dL Urine Blood Mod (Negative) Urine Nitrite Neg (Negative) Urine Bilirubin Neg (Negative) Urine Urobilinogen < 2.0 (<2.0) mg/dL Ur Leukocyte Esterase Sm (Negative) Urine WBC (Auto) 2.0 (0.0-6.0) /HPF Urine RBC (Auto) 2.0 (0.0-6.0) /HPF U Epithel Cells (Auto) 7.0 (0-13.0) /HPF Urine Bacteria (Auto) 1+ (Negative) /HPF Blood Type 08/11/21 08/11/21 Range/Units 17:33 17:33 WBC (4.5-11.0) K/mm3 RBC (3.65-5.03) M/mm3 Hgb (10.1-14.3) gm/dl Hct (30.3-42.9) % MCV (79-97) fl MCH (28-32) pg MCHC (30-34) % RDW (13.2-15.2) % Plt Count (140-440) K/mm3 Lymph % (Auto) (13.4-35.0) % [place] % (Auto) (0.0-7.3) % Eos % (Auto) (0.0-4.3) % Baso % (Auto) (0.0-1.8) % Lymph # (Auto) (1.2-5.4) K/mm3 Mill[place] # (Auto) (0.0-0.8) K/mm3 Eos # (Auto) (0.0-0.4) K/mm3 Baso # (Auto) (0.0-0.1) K/mm3 Seg Neutrophils % (40.0-70.0) % Seg Neutrophils # (1.8-7.7) K/mm3 Sodium (137-145) mmol/L Potassium (3.6-5.0) mmol/L Chloride (98-107) mmol/L Carbon Dioxide (22-30) mmol/L Anion Gap mmol/L BUN (7-17) mg/dL Creatinine (0.6-1.2) mg/dL Estimated GFR ml/min BUN/Creatinine Ratio % Glucose (65-100) mg/dL Calcium (8.4-10.2) mg/dL Total Bilirubin (0.1-1.2) mg/dL AST (5-40) units/L ALT (7-56) units/L Alkaline Phosphatase (35-129) units/L Total Protein (6.3-8.2) g/dL Albumin (3.9-5) g/dL Albumin/Globulin Ratio % HCG, Quant 52186 H (0-4) mIU/mL Urine Color (Yellow) Urine Turbidity (Clear) Urine pH (5.0-7.0) Ur Specific [place] (1.003-1.030) Urine Protein (Negative) mg/dL Urine Glucose (UA) (Negative) mg/dL Urine Ketones (Negative) mg/dL Urine Blood (Negative) Urine Nitrite (Negative) Urine Bilirubin (Negative) Urine Urobilinogen (<2.0) mg/dL Ur Leukocyte Esterase (Negative) Urine WBC (Auto) (0.0-6.0) /HPF Urine RBC (Auto) (0.0-6.0) /HPF U Epithel Cells (Auto) (0-13.0) /HPF Urine Bacteria (Auto) (Negative) /HPF Blood Type AB POSITIVE - Radiology Data Radiology results: report reviewed Ordering Physician: ANA LAURA MCGRATH Date of Service: 08/11/21 Procedure(s): US OB transvaginal Accession Number(s): [id number] cc: ANA LAURA MCGARTH ULTRASOUND OBSTETRIC REASON FOR EXAM: , cramping, spotting TECHNIQUE: Transvaginal ultrasound was performed to evaluate a first trimester . Transabdominal was significantly limited. COMPARISON: None available. FINDINGS: FINDINGS: The pole, yolk sac, and gestational sac are normal in appearance. [place]-rump length: 19.9 mm. This corresponds with a gestational age of 8 weeks 4 days. heart rate: 181-186 bpm Perigestational hemorrhage: There is tiny perigestational hemorrhage. MATERNAL FINDINGS: The uterus demonstrates an otherwise unremarkable sonographic appearance. Both ovaries demonstrated unremarkable sonographic appearance. Normal color Do ppler flow. Cul-de-sac: There is no free fluid. IMPRESSION: 1. Single viable intrauterine . Gestational age is 8 weeks 4 days by ultrasound. Recommend clinical screening and ultrasound follow-up in the second trimester to screen for anomalies. 2. There is a tiny perigestational hemorrhage which may account for vaginal bleeding. Signer Name: Willie Cameron MD Signed: 08/11/2021 8:02 PM Workstation Name: [id number] Transcribed By: SOL Dictated By: WILLIE CAMERON MD Electronically Authenticated By: WILLIE CAMERON MD Signed Date/Time: 08/11/212001 DD/ 41 TD/TT: - Medical Decision Making Patient is a 30-year-old female presents emergency room complaints of vaginal spotting that began yesterday. She denies any heavy bleeding or passing clots. She states that she has had intermittent lower abdominal cramping. She denies any fever, nausea, vomiting, diarrhea, dysuria. She reports that she is approximately 9 weeks . She states that she is receiving her OB care in [place]. She states that she is just here visiting for the holidays. Patient states that she last had ultrasound on 08/07/2021 and reports everything was normal at that time. No past medical history. No allergies to medications. /P: 2/A: 1. vitals are normal. no abd ttp on exam. labs are stable. pt is Rh positive. UA shows 1+ bacteria and small leukocyte esterase. US OB: 1. Single viable intrauterine . Gestational age is 8 weeks 4 days by ultrasound. Recommend clinical screening and ultrasound follow-up in the second trimester to screen for anomalies. 2. There is a tiny perigestational hemorrhage which may account for vaginal bleeding. Discussed all findings with patient and the importance of HOSPITAL NURSING ASSISTANT follow-up. Given that patient is in her first trimester with 1+ bacteria, will cover for UTI. Advised patient please take medication as prescribed. Increase your fluid intake. Please take vitamin [id number]. You will need close HOSPITAL NURSING ASSISTANT follow-up with your HOSPITAL NURSING ASSISTANT. Return to emergency room for any new or worse symptoms. Critical care attestation.: If time is entered above; I have spent that time in minutes in the direct care of this critically ill patient, excluding procedure time. ED Disposition Clinical Impression: Vaginal spotting, Abdominal cramping, Asymptomatic bacteriuria during Subchorionic hematoma Qualifiers: Fetus number: single or unspecified fetus Trimester: first trimester Qualified Code(s): O41.8X10 - Other specified disorders of amniotic fluid and membranes, first trimester, not applicable or unspecified Disposition: 01 HOME / SELF CARE / HOMELESS Is pt being admited?: No Does the pt Need Aspirin: No Condition: Stable Instructions: Vaginal Bleeding During , First Trimester, Urinary Tract Infection, Adult, Subchorionic Hematoma Additional Instructions: please take medication as prescribed. Increase your fluid intake. Please take vitamin [id number]. You will need close HOSPITAL NURSING ASSISTANT follow-up with your HOSPITAL NURSING ASSISTANT. Return to emergency room for any new or worse symptoms. 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
[2021-08-11 17:56] LABS: Basophils # (Auto) 0.1 K/mm3 (0.0-0.1); Basophils % (Auto) 0.8 % (0.0-1.8); Eosinophils # (Auto) 0.1 K/mm3 (0.0-0.4); Eosinophils % (Auto) 1.2 % (0.0-4.3); Hematocrit 38.2 % (30.3-42.9); Hemoglobin 12.5 gm/dl (10.1-14.3); Lymphocytes # (Auto) 1.9 K/mm3 (1.2-5.4); Lymphocytes % (Auto) 27.2 % (13.4-35.0); Mean Corpuscular HGB Conc 33 % (30-34); Mean Corpuscular Volume 88 fl (79-97); Monocytes # (Auto) 0.4 K/mm3 (0.0-0.8); Monocytes % (Auto) 6.4 % (0.0-7.3); Platelet Count 331 K/mm3 (140-440); Red Blood Count 4.31 M/mm3 (3.65-5.03); Red Cell Distribution Width 14.9 % (13.2-15.2)
[2021-08-11 18:11] LABS: Alanine Aminotransferase 11 units/L (7-56); Albumin 4.2 g/dL (3.9-5); Blood Urea Nitrogen 10 mg/dL (7-17); Calcium 9.5 mg/dL (8.4-10.2); Hemolysis Index 6
[2021-08-11 18:13] LABS: BUN/Creatinine Ratio 20
[2021-08-11 19:43] LABS: Bacteria,Urine 1+ /HPF (Negative); Bilirubin,Urine NEG (Negative); Blood,Urine MOD (Negative); Color,Urine Yellow (Yellow); Protein,Urine <15 mg/dL mg/dL (Negative); Urobilinogen,Urine < 2.0 mg/dL (<2.0)
--- NOTE | 2021-08-11 20:06 | Ultrasound Report ---
ULTRASOUND OBSTETRIC REASON FOR EXAM: , cramping, spotting TECHNIQUE: Transvaginal ultrasound was performed to evaluate a first trimester . Transabdomi nal was significantly limited. COMPARISON: None available. FINDINGS: FINDINGS: The pole, yolk sac, and gestational sac are normal in appearance. [place]-rump length: 19.9 mm. This corresponds with a gestational age of 8 weeks 4 days. heart rate: 181-186 bpm Perigestational hemorrhage: There is tiny perigestational hemorrhage. MATERNAL FINDINGS: The uterus demonstrates an otherwise unremarkable sonographic appearance. Both ovaries demonstrated unremarkable sonographic appearance. Normal color Doppler flow. Cul-de-sac: There is no free fluid. IMPRESSION: 1. Single viable intrauterine . Gestational age is 8 weeks 4 days by ultrasound. Recommend c linical screening and ultrasound follow-up in the second trimester to screen for anomalies. 2. There is a tiny perigestational hemorrhage which may account for vaginal bleeding. Signer Name: Kashif Renteria MD Signed: 08/11/2021 8:02 PM Workstation Name: [id number]
== END 2021-08-11 20:25 | disposition home or self-care (01) ==
LOC: ED 17:20
DX: O26.891 Other specified pregnancy related conditions, first trimester (principal); O41.8X10 Other specified disorders of amniotic fluid and membranes, first trimester, not applicable or unspecified; R10.9 Unspecified abdominal pain; O23.90 Unspecified genitourinary tract infection in pregnancy, unspecified trimester; F17.200 Nicotine dependence, unspecified, uncomplicated; F10.20 Alcohol dependence, uncomplicated
CPT/HCPCS: 36415; 76817; 80053; 81001; 84702; 85025; 86900; 86901; 99284

== ENCOUNTER 2021-10-13 16:26 | Emergency (ER) | payer MEDICAID ==
[2021-10-13 20:21] VITALS: BP 113/77
--- NOTE | 2021-10-13 20:41 | Emergency Department Report ---
ED HPI - General Chief complaint: Medical Clearance Stated complaint: NO MOVEMENT x18WKS PREG Source: patient Mode of arrival: Ambulatory Limitations: No Limitations - History of Present Illness Initial comments: 31-year-old female presents to the ED with complaint unable to feel movement. Patient states that she is 18 weeks . She was evaluated De 2020 with a positive test at this facility. She states that she has been evaluate by my life deckhand engineer has an appointment on Monday, September 18. She denies any abdominal pain vaginal bleeding at present time. She is alert and orientedx3. Associated symptoms: denies other symptoms :: Yes Number of weeks : 18 - Related Data : 3 Para: 2 Ab: 1 Home Medications Medication Instructions Recorded Confirmed Last Taken Ferrous Sulfate [Feosol 325 MG tab] 1 tab PO BID 08/27/18 08/27/18 08/26/18 Pnv No.95/Ferrous Fum/Folic AC 1 each PO QDAY 08/27/18 08/27/18 08/26/18 [ Vitamin Tablet] Valacyclovir HCl [Valtrex] 1,000 mg PO QDAY 08/27/18 08/27/18 08/26/18 metroNIDAZOLE [Flagyl TAB] 1 tab PO BID 08/27/18 08/27/18 08/26/18 Previous Rx's Medication Instructions Recorded Last Taken Type Ibuprofen [Motrin] 600 mg PO Q6H PRN #21 tablet 09/03/19 Unknown Rx Acetaminophen [Tylenol] 650 mg PO Q8HR PRN #20 capsule 08/11/21 Unknown Rx cephALEXin [Keflex] 500 mg PO BID 7 Days #14 cap 08/11/21 Unknown Rx Allergies Allergy/AdvReac Type Severity Reaction Status Date / Time No Known Allergies Allergy Verified 08/11/21 17:22 ED Review of Systems ROS: Stated complaint: NO MOVEMENT x18WKS PREG Other details as noted in HPI Constitutional: denies: chills, fever Eyes: denies: eye pain, eye discharge, vision change ENT: denies: ear pain, throat pain Respiratory: denies: cough, shortness of breath, wheezing Cardiovascular: denies: chest pain, palpitations Endocrine: no symptoms reported Gastrointestinal: denies: abdominal pain, nausea, diarrhea Genitourinary: denies: urgency, dysuria, discharge Musculoskeletal: denies: back pain, joint swelling, arthralgia Skin: denies: rash, lesions Neurological: denies: headache, weakness, paresthesias Psychiatric: denies: anxiety, depression Hematological/Lymphatic: denies: easy bleeding, easy bruising ED Past Medical Hx - Past Medical History Hx Hypertension: No Hx Congestive Heart Failure: No Hx Diabetes: No Hx Deep Vein Thrombosis: No Hx Renal Disease: No Hx Sickle Cell Disease: No Hx Seizures: No Hx Asthma: No Hx COPD: No Hx HIV: No - Social History Smoking Status: Current Every Day Smoker Substance Use Type: Alcohol - Medications Home Medications: Home Medications Medication Instructions Recorded Confirmed Last Taken Type Ferrous Sulfate [Feosol 325 MG tab] 1 tab PO BID 08/27/18 08/27/18 08/26/18 History Pnv No.95/Ferrous Fum/Folic AC 1 each PO QDAY 08/27/18 08/27/18 08/26/18 History [ Vitamin Tablet] Valacyclovir HCl [Valtrex] 1,000 mg PO QDAY 08/27/18 08/27/18 08/26/18 History metroNIDAZOLE [Flagyl TAB] 1 tab PO BID 08/27/18 08/27/18 08/26/18 History Ibuprofen [Motrin] 600 mg PO Q6H PRN #21 tablet 09/03/19 Unknown Rx Acetaminophen [Tylenol] 650 mg PO Q8HR PRN #20 capsule 08/11/21 Unknown Rx cephALEXin [Keflex] 500 mg PO BID 7 Days #14 cap 08/11/21 Unknown Rx ED Physical Exam - General Limitations: No Limitations General appearance: alert, in no apparent distress - Head Head exam: Present: atraumatic, normocephalic - Eye Eye exam: Present: normal appearance - ENT ENT exam: Present: mucous membranes moist - Neck Neck exam: Present: normal inspection - Respiratory Respiratory exam: Present: normal lung sounds bilaterally. Absent: respiratory distress - Cardiovascular Cardiovascular Exam: Present: regular rate, normal rhythm. Absent: systolic murmur, diastolic murmur, rubs, gallop - GI/Abdominal GI/Abdominal exam: Present: soft, normal bowel sounds - Extremities Exam Extremities exam: Present: normal inspection - Back Exam Back exam: Present: normal inspection - Neurological Exam Neurological exam: Present: alert, oriented X3 - Psychiatric Psychiatric exam: Present: normal affect, normal mood - Skin Skin exam: Present: warm, dry, intact, normal color. Absent: rash ED Course Vital Signs 10/13/21 10/13/21 16:50 20:20 Temperature 98.6 F 98.7 F Pulse Rate 97 H 90 Respiratory 16 20 Rate Blood Pressure 111/68 Blood Pressure 113/77 [Right] O2 Sat by Pulse 100 99 Oximetry ED Medical Decision Making - Lab Data Result diagrams: 10/13/21 20:55 10/13/21 20:55 - Radiology Data [facility] [address] [place] [address] Ultrasound Report Signed Patient: KRYSTAL RATLIFF MR#: [id number] : 1990 Acct:[id number] Age/Sex: 31 / F ADM Date: 10/13/21 Loc: ED Attending Dr: Ordering Physician: MADINA EPPS MD Date of Service: 10/13/21 Procedure(s): US OB >= 14 wk fetus add gest Accession Number(s): [id number] cc: MADINA EPPS MD ULTRASOUND OBSTETRIC LIMITED INDICATION / CLINICAL INFORMATION: no movement. Clinical Gestational Age (GA) in weeks, days: 18, 3 TECHNIQUE: Transabdominal. COMPARISON: None available. FINDINGS: HEART RATE (beats per minute): 182 Posterior grade 0 placenta. Cervix is closed measuring 3.3 cm. PRESENTATION: Cephalic. Amniotic fluid index within normal limits, subjectively. Biparietal Diameter = 3.8 cm = 17, 4 weeks, days Head Circumference = 14.4 cm = 17, 4 weeks, days Abdominal Circumference = 12.7 cm = 18, 2 weeks, days Femur Length = 2.8 cm = 18, 3 weeks, days Average Ultrasound Age (AUA) = 18, 0 weeks, days ADDITIONAL FINDINGS: None. IMPRESSION: 1. Single live intrauterine gestation with an average gestational age of 18 weeks 0 days. heart tones noted at 182 bpm. Signer Name: Fritz Nuñez DO Signed: 10/13/2021 9:11 PM Workstation Name: [id number] Transcribed By: JEAN MARIE Dictated By: FRITZ NUÑEZ DO Electronically Authenticated By: FRITZ NUÑEZ DO Signed Date/Time: 10/13/212110 DD/ 99 TD/TT: - Medical Decision Making 31-year-old female presents to the ED with complaint unable to feel movement. Patient states that she is 18 weeks . She was evaluated August 11, 2021 with a positive test at this facility. She states that she has been evaluate by my life deckhand engineer has an appointment on Monday, September 18. She denies any abdominal pain vaginal bleeding at present time. She is alert and orientedx3. Patient potassium 3.3 replace K 40 mEq. Patient will for oral hydration . Ultrasound Single live intrauterine gestati on with an average gestational age of 18 weeks 0 days. heart tones noted at 182 bpm. Rechecked the patient is resting quietly quietly and comfortable and feeling better. I discussed the results of diagnostic study, my clinical impression and the plan for further treatment with the patient. Patient agrees with plan and discharge at this present time. All question addressed. I have given the patient instruction regarding a diagnosis ,expectation ,follow- up and return precaution. I explained to the patient that emergent condition may arise and to return to the ED for new worsen and any new persisting condition. I have explained the importance of following up with the primary care physician or referral physician listed below has instructed. The patient verbalized understanding of discharge instruction. Critical care attestation.: If time is entered above; I have spent that time in minutes in the direct care of this critically ill patient, excluding procedure time. ED Disposition Clinical Impression: Qualifiers: Weeks of gestation: 18 weeks Qualified Code(s): Z3A.18 - 18 weeks gestation of Disposition: HOME / SELF CARE / HOMELESS Is pt being admited?: No Does the pt Need Aspirin: No Condition: Stable Instructions: Rehydration, Adult, Second Trimester of , [id number] Additional Instructions: keep appointment with my life return the ED for any worsening symptom Referrals: OBGYN,[facility] [Other] - 3-5 Days
[2021-10-13 21:02] LABS: Bilirubin,Urine NEG (Negative); Blood,Urine NEG (Negative); Color,Urine Yellow (Yellow); Mucus,Urine 3+ /HPF; Protein,Urine <15 mg/dL mg/dL (Negative); Urobilinogen,Urine < 2.0 mg/dL (<2.0)
[2021-10-13 21:11] LABS: Basophils # (Auto) 0.1 K/mm3 (0.0-0.1); Basophils % (Auto) 0.6 % (0.0-1.8); Eosinophils # (Auto) 0.1 K/mm3 (0.0-0.4); Eosinophils % (Auto) 0.8 % (0.0-4.3); Hematocrit 38.6 % (30.3-42.9); Hemoglobin 12.9 gm/dl (10.1-14.3); Lymphocytes % (Auto) 22.1 % (13.4-35.0); Mean Corpuscular HGB Conc 33 % (30-34); Mean Corpuscular Volume 87 fl (79-97); Monocytes # (Auto) 0.7 K/mm3 (0.0-0.8); Monocytes % (Auto) 7.6 % (0.0-7.3); Platelet Count 319 K/mm3 (140-440); Red Blood Count 4.41 M/mm3 (3.65-5.03); Red Cell Distribution Width 14.7 % (13.2-15.2)
--- NOTE | 2021-10-13 21:16 | Ultrasound Report ---
ULTRASOUND OBSTETRIC LIMITED INDICATION / CLINICAL INFORMATION: no movement. Clinical Gestational Age (GA) in weeks, days: 18, 3 TECHNIQUE: Transabdominal. COMPARISON: None available. FINDINGS: HEART RATE (beats per minute): 182 Posterior grade 0 placenta. Cervix is closed measuring 3.3 cm. PRESENTATION: Cephalic. Amniotic fluid index within normal limits, subjectively. Biparietal Diameter = 3.8 cm = 17, 4 weeks, days Head Circumference = 14.4 cm = 17, 4 weeks, days Abdominal Circumference = 12.7 cm = 18, 2 weeks, days Femur Length = 2.8 cm = 18, 3 weeks, days Average Ultrasound Age (AUA) = 18, 0 weeks, days ADDITIONAL FINDINGS: None. IMPRESSION: 1. Single live intrauterine gestation with an average gestational age of 18 weeks 0 days. heart tones noted at 182 bpm. Signer Name: Fritz Nuñez DO Signed: 10/13/2021 9:11 PM Workstation Name: [id number]
[2021-10-13 21:34] LABS: Alanine Aminotransferase 9 units/L (7-56); Blood Urea Nitrogen 7 mg/dL (7-17); Calcium 9.6 mg/dL (8.4-10.2); Hemolysis Index 4
[2021-10-13 21:35] LABS: BUN/Creatinine Ratio 18
[2021-10-13] MEDS ORDERED: POTASSIUM CHLORIDE ER 20 MEQ TAB PO ONE (21:49)
== END 2021-10-13 22:30 | disposition home or self-care (01) ==
LOC: ED 16:26
DX: O36.8120 Decreased fetal movements, second trimester, not applicable or unspecified (principal); Z3A.18 18 weeks gestation of pregnancy; F17.200 Nicotine dependence, unspecified, uncomplicated
CPT/HCPCS: 36415; 76805; 76810; 80053; 81001; 84702; 85025; 86900; 86901; 99284

== ENCOUNTER 2022-01-06 13:20 | Outpatient (CLI) | payer MEDICAID ==
[2022-01-06] MEDS ORDERED: LACTATED RINGERS 500 ML IV ONE (18:13)
[2022-01-06] MEDS ORDERED: BICITRA ORAL LIQD 30ML PO ONE (18:13)
[2022-01-06] MEDS ORDERED: METOCLOPRAMIDE 10 MG/2 ML INJ IV ONE (18:13)
[2022-01-06] MEDS ORDERED: ONDANSETRON 4 MG/2 ML INJ IV PRN (18:13)
[2022-01-06 18:31] VITALS: BP 99/53
--- NOTE | 2022-01-09 11:53 | Electrocardiograph Report ---
[facility] Test Date: 2022-01-06 Test Time: 18:02:24 Pat Name: KRYSTAL RATLIFF Department: Room: Gender: F Film Processor: [place] [id number] : 1990 Requested By: ROSALEE ORDAZ Order Number: [id number] Reading MD: Xavier Gonzales Measurements Intervals [place] Rate: 108 P: 63 [place]: 154 QRS: 27 QRSD: 88 T: 40 QT: 336 QTc: 451 Interpretive Statements Sinus tachycardia No previous ECG available for comparison Electronically Signed On 01-09-2022 11:52:58 EDT by Xavier Gonzales
== END 2022-01-06 18:46 | disposition home or self-care (01) ==
LOC: APU 13:20 → TRG 13:20
PROVIDERS: ATTEND Obstetrics & Gynecology
DX: O26.893 Other specified pregnancy related conditions, third trimester (principal); R07.9 Chest pain, unspecified; R51.9 Headache, unspecified; R42 Dizziness and giddiness; K92.0 Hematemesis; R12 Heartburn; Z3A.30 30 weeks gestation of pregnancy
CPT/HCPCS: 59025; 93005; 96365; 96366; 96368; J2405; J2765; J7120; 96360; 96374; 96375

== ENCOUNTER 2022-03-12 22:31 | Inpatient (IN) | payer MEDICAID ==
--- NOTE | 2022-03-13 01:23 | Ultrasound Report ---
US OB follow up INDICATION / CLINICAL INFORMATION: DAINA, EFW COMPARISON: OB ultrasound 10/13/2021; first trimester OB ultrasound 07/22/2021 TECHNIQUE: Using a transcutaneous probe, multiple grayscale, color Doppler, and spectral Doppler imag es of the uterus and fetus were captured and stored. FINDINGS: Single cephalic fetus heart rate 151 bpm. The amniotic fluid index is within normal limits measuring 10.0 cm. A posterior placenta is present grossly unremarkable in appearance. Biparietal Diameter = 8.84 cm = 35, 5 weeks, days Head Circumference = 31.07 cm = 34, 5 weeks, days Abdominal Circumference = 33.06 cm = 37, 0 weeks, days Femur Length = 7.8 cm = 39, 6 weeks, days Average Ultrasound Age (AUA) = 36, 6 weeks, days. EDC 04/04/2022. Clinical estimate of gestational age is 40 weeks 0 days. Estimated weight = 3164 g; 16% growth percentile. Incidental note made of nuchal cord. IMPRESSION: 1. Single living fetus with estimated weight of 3164 g, normal DIANA. 2. Incidental note made of nuchal cord. 3. Compared to first trimester OB ultrasound, growth appears to be within acceptable standard deviati on for third trimester ultrasound. Signer Name: Andrew Mirza II, MD Signed: 03/13/2022 1:18 AM Workstation Name: [id number]
[2022-03-13] MEDS ORDERED: METHYLERGONOVINE MALEATE 0.2 MG/ML VIAL IM PRN (05:09)
[2022-03-13] MEDS ORDERED: ACETAMINOPHEN 325 MG TAB PO PRN ×2 (05:09→14:30)
[2022-03-13] MEDS ORDERED: ePHEDrine SULFATE 50 MG/1 ML INJ IV PRN (05:09)
[2022-03-13] MEDS ORDERED: OXYTOCIN 10 UNIT/1 ML INJ IM PRN (05:09)
[2022-03-13] MEDS ORDERED: TERBUTALINE 1 MG/1 ML INJ SUB-Q PRN (05:09)
[2022-03-13] MEDS ORDERED: LOPERAMIDE 2 MG CAP PO PRN (05:09)
[2022-03-13] MEDS ORDERED: miSOPROStol 200 MCG TAB PR PRN (05:09)
[2022-03-13] MEDS ORDERED: CARBOPROST TROMETHAMINE 250 MCG/1 ML INJ IM PRN (05:09)
[2022-03-13] MEDS ORDERED: BUTORPHANOL 2 MG/1 ML INJ IV PRN ×3 (05:09→09:00)
[2022-03-13] MEDS ORDERED: MINERAL OIL 30 ML ORAL LIQD PO PRN (05:09)
[2022-03-13] MEDS ORDERED: OXYTOCIN DRIP 30 UNITS/500 ML BAG IV SCH (06:00)
[2022-03-13] MEDS ORDERED: miSOPROStol 25 MCG TAB PO SCH (06:00)
[2022-03-13 06:18] LABS: Hematocrit 40.4 % (30.3-42.9); Hemoglobin 13.6 gm/dl (10.1-14.3); Mean Corpuscular HGB Conc 34 % (30-34); Mean Corpuscular Volume 90 fl (79-97); Platelet Count 265 K/mm3 (140-440); Red Blood Count 4.47 M/mm3 (3.65-5.03); Red Cell Distribution Width 14.5 % (13.2-15.2)
[2022-03-13] MEDS: LACTATED RINGERS 1,000 ML IV SCH (06:40)
[2022-03-13] MEDS: fentaNYL 100 MCG/2 ML INJ IV PRN ×2 (06:42→09:11)
--- NOTE | 2022-03-13 07:56 | History and Physical Report ---
History of Present Illness Date of examination: 03/13/22 Date of admission: 03/13/22 05:09 Chief complaint: Leaking of fluid History of present illness: 31 y/o at 40 weeks presents to [facility]BT reporting LOF. No VB. Irregular CTX. Good FM. ROM Plus testing unavailable at this time. DIANA is 10 cm. Out of an abundance of caution, admit to L&D for IOL secondary to suspected Term PROM. Past History Past Medical History: no pertinent history Past Surgical History: no surgical history Family/Genetic History: none Social history: no significant social history - Obstetrical History Expected Date of Delivery: 03/13/22 Actual Gestation: 40 Week(s) 0 Day(s) : 5 Para: 2 Hx # Term Pregnancies: 1 Number of Pregnancies: 1 Number of Living Children: 2 Medications and Allergies Allergies Allergy/AdvReac Type Severity Reaction Status Date / Time No Known Allergies Allergy Verified 08/11/21 17:22 Home Medications Medication Instructions Recorded Confirmed Last Taken Type Ferrous Sulfate [Feosol 325 MG tab] 1 tab PO BID 08/27/18 08/27/18 08/26/18 History Pnv No.95/Ferrous Fum/Folic AC 1 each PO QDAY 08/27/18 08/27/18 08/26/18 History [ Vitamin Tablet] Valacyclovir HCl [Valtrex] 1,000 mg PO QDAY 08/27/18 08/27/18 08/26/18 History metroNIDAZOLE [Flagyl TAB] 1 tab PO BID 08/27/18 08/27/18 08/26/18 History Ibuprofen [Motrin] 600 mg PO Q6H PRN #21 tablet 09/03/19 Unknown Rx Acetaminophen [Tylenol] 650 mg PO Q8HR PRN #20 capsule 08/11/21 Unknown Rx cephALEXin [Keflex] 500 mg PO BID 7 Days #14 cap 08/11/21 Unknown Rx Active Meds: Active Medications Acetaminophen (Acetaminophen 325 Mg Tab) 650 mg PO Q4H PRN PRN Reason: Pain, Mild (1-3) Butorphanol Tartrate (Butorphanol 2 Mg/1 Ml Inj) 2 mg IV Q2H PRN PRN Reason: Pain, Moderate(4-6) LABOR PAIN Carboprost Tromethamine (Carboprost Tromethamine 250 Mcg/1 Ml Inj) 250 mcg IM ONCE PRN PRN Reason: Uterine Bleeding Ephedrine Sulfate (Ephedrine Sulfate 50 Mg/1 Ml Inj) 10 mg IV Q2M PRN PRN Reason: Hypotension Fentanyl (Fentanyl 100 Mcg/2 Ml Inj) 100 mcg IV Q2H PRN PRN Reason: Pain,Severe (7-10) LABOR PAIN Last Admin: 03/13/22 06:42 Dose: 100 mcg Lactated Ringer's (Lactated Ringers) 1,000 mls @ 125 mls/hr IV DIRECT ALEYDA Last Admin: 03/13/22 06:40 Dose: 125 mls/hr Oxytocin/Sodium Chloride (Pitocin/Ns 30 Unit/500ml) 30 units in 500 mls @ 40 mls/hr IV TITR ALEYDA; Protocol Methylergonovine Maleate (Methylergonovine Maleate 0.2 Mg/Ml Vial) 0.2 mg IM ONCE PRN PRN Reason: Uterine Bleeding Misoprostol (Misoprostol 25 Mcg Tab) 25 mcg PO Q4H ALEYDA Stop: 03/13/22 18:01 Last Admin: 03/13/22 05:58 Dose: 25 mcg Terbutaline Sulfate (Terbutaline 1 Mg/1 Ml Inj) 0.25 mg SUB-Q ONCE PRN PRN Reason: Hyperstimulation/Hypertonicity Review of Systems All systems: negative - Vital Signs Vital signs: Vital Signs Pulse BP 100 H 112/72 03/12/22 23:27 03/12/22 23:27 Temp Pulse Resp BP Pulse Ox 98.1 F 94 H 18 120/77 97 03/13/22 03:20 03/13/22 07:49 03/13/22 03:20 03/13/22 05:47 03/13/22 07:49 - Physical Exam Breasts: Positive: normal Cardiovascular: Regular rate Lungs: Positive: Normal air movement Abdomen: Positive: normal appearance Genitourinary (Female): Positive: normal external genitalia, normal perenium Vulva: both: normal Vagina: Positive: normal moisture Uterus: Positive: enlarged Adnexa: both: normal Anus/Rectum: Positive: normal perianal skin Extremities: Positive: normal Deep Tendon Reflex Grade: Normal +2 - Obstetrical FHR: category 1 Uterine Contraction Monitor Mode: External Cervical Dilatation: 3 Cervical Effacement Percentage: 50 station: -1 Uterine Contraction Pattern: Irregular Results Result Diagrams: 03/13/22 03:40 All other labs normal. Ultrasound: report reviewed, image reviewed Assessment and Plan - Patient Problems (1) 40 weeks gestation of Current Visit: Yes Status: Acute Plan to address problem: care is UTD at [facility] [employer]. AM shift to obtain records. She is GBS (-). (2) Postmaturity , 40-42 weeks gestation Current Visit: Yes Status: Acute Plan to address problem: Admit to L&D for IOL. (3) Full-term premature rupture of membranes (PROM) with unknown onset of labor Current Visit: Yes Status: Acute Plan to address problem: The patient has a plausible history for Term PROM. ROM Plus testing is unavailable at this time. But, DIANA is WNL. Out of an abundance of caution, admit to L&D and IOL for Term PROM. (4) Encounter for induction of labor Current Visit: Yes Status: Acute Plan to address problem: Rx Cytotec for IOL.
[2022-03-13] MEDS ORDERED: MINERAL OIL 30 ML ORAL LIQD ONE (10:12)
[2022-03-13] MEDS ORDERED: LIDOCAINE (2%) 20 MG/1 ML VIAL 20 ML MDV INFILTRATI ONE (10:12)
[2022-03-13] MEDS ORDERED: PROMETHAZINE 25 MG RECT SUPP PR PRN (14:30)
[2022-03-13] MEDS ORDERED: miSOPROStol 100 MCG TAB PR PRN (14:30)
[2022-03-13] MEDS ORDERED: LANOLIN/ZINC/DIMETHICONE (LANSINOH) 7 GM TP PRN (14:30)
[2022-03-13] MEDS ORDERED: WITCH HAZEL/ GLYCERIN PAD TP PRN (14:30)
[2022-03-13] MEDS ORDERED: diphenhydrAMINE 25 MG CAP PO PRN (14:30)
[2022-03-13] MEDS ORDERED: ONDANSETRON 4 MG/2 ML INJ IV PRN (14:30)
[2022-03-13] MEDS ORDERED: BENZOCAINE/MENTHOL 20/0.5% TOP SPRAY 56 GM TP PRN (14:30)
[2022-03-13] MEDS ORDERED: PROMETHAZINE 25 MG TAB PO PRN (14:30)
[2022-03-13] MEDS ORDERED: SODIUM CHLORIDE 0.9% 1000 ML 1,000 ML IV ONE (14:45)
[2022-03-13 15:13] LABS: Basophils # (Auto) 0.1 K/mm3 (0.0-0.1); Basophils % (Auto) 0.5 % (0.0-1.8); Eosinophils % (Auto) 0.1 % (0.0-4.3); Hemoglobin 11.2 gm/dl (10.1-14.3); Lymphocytes # (Auto) 1.4 K/mm3 (1.2-5.4); Lymphocytes % (Auto) 10.8 % (13.4-35.0); Mean Corpuscular HGB Conc 33 % (30-34); Mean Corpuscular Volume 91 fl (79-97); Monocytes # (Auto) 0.8 K/mm3 (0.0-0.8); Monocytes % (Auto) 5.9 % (0.0-7.3); Platelet Count 215 K/mm3 (140-440); Red Blood Count 3.75 M/mm3 (3.65-5.03); Red Cell Distribution Width 14.2 % (13.2-15.2)
--- NOTE | 2022-03-13 15:25 | Procedure Note ---
OB Delivery Note - Delivery Date of Delivery: 03/13/22 Surgeon: RUSSELL ZEPEDA Estimated blood loss: other (400cc) - Vaginal Delivery presentation: vertex Delivery induction: misoprostol (already was PROM) Delivery monitor: external FHT, external uterine Route of delivery: Delivery placenta: spontaneous Delivery cord: 3 umbilical vessels Episiotomy: none Delivery laceration: none Anesthesia: none Delivery comments: Called to the room by nurse stating pt was complete. SAVD uncomplicated at 10:29am of viable male infant with nuchal cords x2 and both reduced on the perineum. Spontaneous delivery of intact placenta with 3vessel cord and small area approx 3x3cm appear avascular/blanched. Bimanual with uterus firm and no cervical, vaginal nor perineal lacerations. Pt given IV pitocin. Mom and baby stable. EBL 400cc - Infant A at 1 minute: 8 at 5 minutes: 9 Infant Gender: Male (wt 3200g; clear fluid)
--- NOTE | 2022-03-13 15:29 | Event Note ---
Date: 03/13/22 Nurse called from stating pt got up and large clot noted and she was having heavy vag bleed. Order given to place cytotec 800mcg per rectum for which the nurse did. Pt evaluated and CBC sent and IV normal saline given. Bimanual exam done and large amount of dark red clots removed. Speculum exam done and no cervical lacerations seen with portable light. All clots evacuated and hard mass felt, however pt denies any history of uterine fibroid. Will evaluate with bedside ultrasound by radiology dept to ensure to retained product s of conception. Hgb previously 13 fell to 11. Rodriguez catheter placed with clear urine small amount. Pt to continue IV hydration with LR at 125cc/hr and pad check every hr for the nex 3 hours and rodriguez cath to remain until 6hrs. Will repeat cbc at that time. BP previously 80/45, now 100/62 and pulse previously 98, now 93. EBL 925cc by QBL (and pt already lost 400cc during delivery). Pt counseled not to get out of bed without assistance while her rodriguez cath is in. Also to call the nurse if she feels any trickle or clots. Will give ancef 2gm IVPB now. Pt agrees. All questions encouraged and answered.
[2022-03-13] MEDS: ceFAZolin/NS 1 GM/50 ML 1 GM/50 ML BAG IV SCH (16:32)
--- NOTE | 2022-03-13 16:56 | Ultrasound Report ---
US pelvic limited INDICATION: PPH, retained prod; ; PPD#0. TECHNIQUE: Limited pelvic ultrasound obtained COMPARISON: None available. FINDINGS: The uterus is enlarged consistent with recent . There is thickening of the endometrium but n o significant blood flow within the endometrial cavity. There is no free fluid. IMPRESSION: 1. Sonographic findings consistent with uterus. No definite findings to suggest retained p roducts of conception. Signer Name: Mao Caldera MD Signed: 03/13/2022 4:52 PM Workstation Name: [email or web address]
[2022-03-13 20:53] LABS: Basophils # (Auto) 0.1 K/mm3 (0.0-0.1); Basophils % (Auto) 0.5 % (0.0-1.8); Eosinophils % (Auto) 0.1 % (0.0-4.3); Hematocrit 30.9 % (30.3-42.9); Hemoglobin 10.7 gm/dl (10.1-14.3); Lymphocytes # (Auto) 1.6 K/mm3 (1.2-5.4); Lymphocytes % (Auto) 10.4 % (13.4-35.0); Mean Corpuscular HGB Conc 35 % (30-34); Mean Corpuscular Volume 90 fl (79-97); Monocytes # (Auto) 1.1 K/mm3 (0.0-0.8); Monocytes % (Auto) 6.9 % (0.0-7.3); Platelet Count 238 K/mm3 (140-440); Red Blood Count 3.42 M/mm3 (3.65-5.03); Red Cell Distribution Width 14.5 % (13.2-15.2)
[2022-03-13] MEDS ORDERED: TRANEXAMIC ACID 1,000 MG in SODIUM CHLORIDE 0.9% 100 ML IV NR (21:00)
[2022-03-13] MEDS: IBUPROFEN 800 MG TAB PO SCH (21:05)
[2022-03-13] MEDS: DOCUSATE SODIUM 100 MG CAP PO SCH (21:59)
[2022-03-13] MEDS ORDERED: MAGNESIUM HYDROXIDE (MOM) ORAL LIQD UDC PO PRN (22:00)
[2022-03-14] MEDS: oxyCODONE /ACETAMINOPHEN 5-325MG TAB PO PRN (01:01)
[2022-03-14] MEDS: LACTATED RINGERS 1,000 ML IV SCH (01:10)
[2022-03-14] MEDS: ceFAZolin/NS 1 GM/50 ML 1 GM/50 ML BAG IV SCH (01:10)
[2022-03-14] MEDS: IBUPROFEN 800 MG TAB PO SCH ×4 (04:58→22:23)
[2022-03-14 08:05] LABS: Hematocrit 26.3 % (30.3-42.9); Hemoglobin 8.8 gm/dl (10.1-14.3); Mean Corpuscular HGB Conc 33 % (30-34); Mean Corpuscular Volume 92 fl (79-97); Platelet Count 205 K/mm3 (140-440); Red Blood Count 2.87 M/mm3 (3.65-5.03); Red Cell Distribution Width 14.4 % (13.2-15.2)
[2022-03-14] MEDS: DOCUSATE SODIUM 100 MG CAP PO SCH ×2 (09:28→22:23)
[2022-03-14] MEDS: PRENATAL VIT27-FE FUMARATE-FOLIC ACID VIT TAB PO SCH (09:28)
--- NOTE | 2022-03-14 11:34 | Progress Note ---
Assessment and Plan A: PP Day #1 Asymptomatic Anemia P: Follow Routine Orders Infed 100mg IM x 1 dose Ferrous Sulfate 325mg PO BID D/C home in the AM RTO in 6 Weeks Subjective - Subjective Date of service: 03/14/22 Patient reports: appetite normal, voiding normally, pain well controlled, flatus, bowel movement, ambulating normally : doing well, bottle feeding Objective - Vital Signs Latest vital signs: Vital Signs Temp Pulse Resp BP BP Pulse Ox Pulse Ox 03/14/22 10:29 103/63 03/14/22 08:35 82 88/49 100 03/14/22 08:21 98 03/14/22 07:50 98.0 F 84 18 82/46 99 03/14/22 04:58 18 03/14/22 01:29 98.3 F 89 18 93/53 99 03/14/22 01:01 16 03/13/22 21:07 98.8 F 102 H 18 93/56 99 03/13/22 20:30 98 03/13/22 18:30 98 H 102/57 03/13/22 17:30 95 H 105/69 03/13/22 16:56 98.2 F 104 H 18 100/64 100 03/13/22 16:30 95 H 100/66 97 03/13/22 13:56 93 H 100/62 03/13/22 13:44 98 H 80/45 97 03/13/22 12:35 97.8 F 71 18 111/72 98 98 03/13/22 11:59 83 99 03/13/22 11:54 80 99 03/13/22 11:49 86 96 03/13/22 11:48 86 119/79 03/13/22 11:44 79 97 03/13/22 11:39 84 97 03/13/22 11:34 98 H 97 03/13/22 11:33 83 112/70 Intake and Output 03/13/22 03/14/22 03/14/22 22:59 06:59 14:59 Intake Total 530 Output Total 600 400 Balance -70 -400 Intake: IV 50 ANCEF/NS 1 GM/50 ML 1 gm 50 In 50 ml @ 100 mls/hr IV Q8H [facility] Rx#:[id number] Oral 480 Output: Urine 600 400 Indwelling Catheter 600 400 Other: Total, Intake Amount 360 Total, Output Amount 100 400 # Voids Indwelling Catheter 1 # Bowel Movements 1 - Exam Breasts: Present: normal Cardiovascular: Present: Regular rate Lungs: Present: Clear to auscultation, Normal air movement Abdomen: Present: normal appearance, soft, normal bowel sounds Uterus: Present: normal, firm, fundal height below umbilicus Extremities: Present: normal - Labs Labs: Abnormal lab results 03/13/22 03/13/22 03/14/22 Range/Units 14:06 20:33 06:54 WBC 12.9 H 15.5 H 11.1 H (4.5-11.0) K/mm3 RBC 3.42 L 2.87 L (3.65-5.03) M/mm3 Hgb 8.8 L (10.1-14.3) gm/dl Hct 26.3 L (30.3-42.9) % MCHC 35 H (30-34) % Lymph % (Auto) 10.8 L 10.4 L (13.4-35.0) % Ralls # (Auto) 1.1 H (0.0-0.8) K/mm3 Seg Neutrophils % 82.7 H 82.1 H (40.0-70.0) % Seg Neutrophils # 10.6 H 12.7 H (1.8-7.7) K/mm3
--- NOTE | 2022-03-14 11:35 | Discharge Summary ---
Providers - Providers Date of Admission: 03/13/22 05:09 Date of discharge: 03/15/22 Attending physician: RUSSELL ZEPEDA Primary care physician: RUSSELL ZEPEDA Hospitalization Reason for admission: rupture of membranes Delivery: Episiotomy: none Laceration: none Other procedures: none complications: none Discharge diagnosis: IUP at term delivered baby: male Condition at discharge: Good Disposition: 01 HOME / SELF CARE / HOMELESS Plan - Provider Discharge Summary Activity: routine, no sex for 6 weeks, no heavy lifting 4 weeks, no strenuous exercise Diet: routine Instructions: routine Additional instructions: [] Smoking cessation referral if applicable(refer to patient education folder for contact #) [] Refer to [facility] Booklet Call your doctor immediately for: * Fever > 100.5 * Heavy vaginal bleeding ( >1 pad per hour) * Severe persistent headache * Shortness of breath * Reddened, hot, painful area to leg or breast * Drainage or odor from incision. * Keep incision clean and dry at all times and follow doctor's instructions regarding bathing/showering - Follow up plan Follow up: RUSSELL ZEPEDA MD [Primary Care Provider] - 6 Weeks Forms: [facility] Discharge Summary
[2022-03-14] MEDS: FERROUS SULFATE 325 MG TAB PO SCH ×2 (11:37→22:23)
[2022-03-14] MEDS ORDERED: IRON DEXTRAN COMPLEX 100 MG/2 ML INJ IM NR (12:00)
[2022-03-15] MEDS: oxyCODONE /ACETAMINOPHEN 5-325MG TAB PO PRN (01:13)
[2022-03-15] MEDS: IBUPROFEN 800 MG TAB PO SCH (05:24)
[2022-03-15] MEDS: FERROUS SULFATE 325 MG TAB PO SCH (10:19)
[2022-03-15] MEDS: PRENATAL VIT27-FE FUMARATE-FOLIC ACID VIT TAB PO SCH (10:19)
[2022-03-15] MEDS: DOCUSATE SODIUM 100 MG CAP PO SCH (10:19)
[2022-03-15 11:43] LABS: Basophils % (Auto) 0.5 % (0.0-1.8); Eosinophils # (Auto) 0.1 K/mm3 (0.0-0.4); Hematocrit 25.8 % (30.3-42.9); Hemoglobin 8.7 gm/dl (10.1-14.3); Lymphocytes % (Auto) 20.9 % (13.4-35.0); Mean Corpuscular HGB Conc 34 % (30-34); Mean Corpuscular Volume 93 fl (79-97); Monocytes # (Auto) 0.5 K/mm3 (0.0-0.8); Monocytes % (Auto) 5.1 % (0.0-7.3); Platelet Count 217 K/mm3 (140-440); Red Blood Count 2.77 M/mm3 (3.65-5.03); Red Cell Distribution Width 14.5 % (13.2-15.2)
[2022-03-15 12:56] VITALS: BP 107/67
== END 2022-03-15 21:00 | disposition home or self-care (01) | DRG 775 ==
LOC: TRG 22:31 → APU 22:34 → LD 03-13 03:38 → OBSVTOIN 03-13 05:09 → LD 03-13 05:09 → TRG 03-13 05:54 → OB 03-13 12:21
PROVIDERS: ADMIT Obstetrics & Gynecology; ATTEND Obstetrics & Gynecology
PROC: 10E0XZZ Delivery of Products of Conception, External Approach (ICD-10-PCS; principal; 2022-03-13)
PROC: 3E0P7VZ Introduction of Hormone into Female Reproductive, Via Natural or Artificial Opening (ICD-10-PCS; 2022-03-13)
DX: O42.02 Full-term premature rupture of membranes, onset of labor within 24 hours of rupture (principal); Z37.0 Single live birth; Z3A.40 40 weeks gestation of pregnancy; Z20.822 Contact with and (suspected) exposure to COVID-19; O48.0 Post-term pregnancy; O90.81 Anemia of the puerperium; O69.81X0 Labor and delivery complicated by cord around neck, without compression, not applicable or unspecified
CPT/HCPCS: 36415; 59025; 76816; 76857; 85014; 85018; 85025; 85027; 86850; 86900; 86901; 96360; 96361; 96374; 96376; G0378; J3490; J0690; J1750; J2210; J3010; J7120; U0003